=== PATIENT | female | born 1935 | race Caucasian/White ===

== ENCOUNTER 2017-02-22 11:18 | Emergency (ER) | payer OTHER ==
--- NOTE | 2017-02-22 11:49 | PDOC ---
History of Present Illness - General Chief Complaint: Injury Stated Complaint: FALL, Time Seen by Provider: 02/22/17 11:38 History Source: Patient, Old Records Exam Limitations: No Limitations - History of Present Illness Initial Comments: 02/22/17 11:59 81-year-old female with history of HTN, HLD, anemia, scleroderma and neuropathy presents to the emergency Department with complaints of right hip pain status post mechanical fall today. The patient states that she was walking with her walker and she lost her footing landing on her right buttock. There was no head trauma or loss of consciousness. The patient was able to get up immediately after the fall and ambulate/weight-bear. The patient denies any history of chest pain, shortness of breath, dizziness, palpitations prior to her fall. The patient has a h/o right hip fracture one year ago with placement of hardware. Past History - Past Medical History Allergies/Adverse Reactions: Allergies Allergy/AdvReac Type Severity Reaction Status Date / Time codeine [Codeine] Allergy Verified 09/02/12 16:47 ANESTESIA AdvReac Severe Uncoded 09/02/12 16:46 CODIENE AdvReac Intermediate Uncoded 09/02/12 16:46 Home Medications: Ambulatory Orders Metoprolol Succinate [Toprol XL -] 100 mg PO HS 09/02/12 Rosuvastatin Calcium [Crestor] 5 mg PO HS 09/02/12 Ca Cmb No.1/Vit D3/B-6/FA/B12 [Vitamin D3 1,000 Unit Tablet] 1 each PO DAILY tablet 09/06/13 Cholecalciferol (Vitamin D3) [Vitamin D3 -] 1,000 unit PO DAILY 08/16/14 Multivitamins [Multivit ([facility] Formulary)] 1 tab PO DAILY 08/16/14 HTN: Yes Hypercholesterolemia: Yes - Psycho/Social/Smoking Cessation Hx Anxiety: No Suicidal Ideation: No Smoking Status: No Smoking History: Never smoked Have you smoked in the past 12 months: No Number of Cigarettes Smoked Daily: 0 Hx Alcohol Use: No Drug/Substance Use Hx: No Substance Use Type: None Review of Systems - Review of Systems Able to Perform ROS?: Yes Is the patient limited Luxembourgish proficient: No Constitutional: No: Symptoms Reported HEENTM: No: Symptoms Reported Respiratory: No: Symptoms reported Cardiac (ROS): No: Symptoms Reported ABD/GI: No: Symptoms Reported : No: Symptoms Reported Musculoskeletal: Yes: See HPI Integumentary: No: Symptoms Reported Neurological: No: Symptoms reported *Physical Exam - Physical Exam Comments: 02/22/17 12:01 GENERAL: Well developed, well nourished. Awake and alert. No acute distress. HEENT: Normocephalic, atraumatic. PERRLA, EOMI. No conjunctival pallor. Sclera are non- icteric. Moist mucous membranes. Oropharynx is clear. NECK: Supple. Full ROM. No JVD. No lymphadenopathy. CARDIOVASCULAR: Regular rate and rhythm. No murmurs, rubs, or gallops. Distal pulses are 2+ and symmetric. PULMONARY: No evidence of respiratory distress. Lungs clear to auscultation bilaterally. No wheezing, rales or rhonchi. ABDOMINAL: Soft. Non-tender. Non-distended. No rebound or guarding. No organomegaly. Normoactive bowel sounds. MUSCULOSKELETAL Normal range of motion at all joints. No bony deformities or tenderness. No CVA tenderness. EXTREMITIES: There is mild tenderness to the right buttock where there is a healing chronic ulcer to the right hip. There is full ROM of the right hip and knee and there is no gross bony deformity noted. Distal pulses are intact and the motor exam is intact. SKIN: Warm and dry. Normal capillary refill. No rashes. No jaundice. NEUROLOGICAL: Alert, awake, appropriate. Cranial nerves 2-12 intact. Grossly non-focal exam. PSYCHIATRIC: Cooperative. Good eye contact. Appropriate mood and affect. Medical Decision Making - Medical Decision Making 02/22/17 12:02 81-year-old female with history of right hip fracture one year ago with hardware in place status post mechanical fall today with complaints of right hip pain but she is weightbearing on the extremity. Differential diagnosis includes but is not limited to: Hip fracture, pelvic fracture, displacement of hardware, contusion, sprain. Plan: 1. Plain films of the hip and pelvis 2. Pain managementpatient declines pain medication at this time 3. Observe and reevaluate 02/22/17 13:36 Addendum: Plain films are negative for acute injury. Will discharge home, follow-up with PCP, RTED if Sx persist, worsen or new Sx arise. *DC/Admit/Observation/Transfer Diagnosis at time of Disposition: Contusion of hip, right, Fall - Discharge Dispostion Disposition: HOME Condition at time of disposition: Stable Admit: No - Patient Instructions Additional Instructions: You may take tylenol for the pain. FOllow-up with your primary care physician and return to the ED if your symptoms persist, worsen or new symptoms arise.
[2017-02-22 11:51] VITALS: BP 186/81; PULSE 80; TEMP 98.5; BMI 26.2
== END 2017-02-22 13:43 | disposition home or self-care (01) ==
LOC: FER 11:18
DX: S70.01XA Contusion of right hip, initial encounter (principal); W18.30XA Fall on same level, unspecified, initial encounter; Y93.89 Activity, other specified; Y92.9 Unspecified place or not applicable; I10 Essential (primary) hypertension; E78.5 Hyperlipidemia, unspecified; M34.9 Systemic sclerosis, unspecified
CPT/HCPCS: 73523-TC; 99281-25

== ENCOUNTER 2018-05-23 16:20 | Inpatient (IN) | payer OTHER ==
--- NOTE | 2018-05-23 16:42 | PDOC ---
History of Present Illness - General Chief Complaint: Lethargy Stated Complaint: WEAKNESS Time Seen by Provider: 05/23/18 16:37 History Source: Patient Exam Limitations: No Limitations - History of Present Illness Initial Comments: 05/23/18 17:36 82y F pmhx htn, hl, scleraderma present with complaint of weakness when she was using the bathroom. She was walking to the couch after using the rest room and felt generally weak. This has happened before and she was dx with pna earlier in the year. pt notes she was feeling fine the past few days and this morning. denies any chestp apin, sob, fever/chills, n/v/d, headache, vision changes, neuro complaints, dizziness, dysuria, diarrhea. pt endorses a intermittent cough, intermittently productive of sputum her bp meds were recently changed, was originally given a 'water pill' and valsartan originally but now is just taking valsartan Past History - Past Medical History Allergies/Adverse Reactions: Allergies Allergy/AdvReac Type Severity Reaction Status Date / Time codeine [Codeine] Allergy Verified 09/02/12 16:47 ANESTESIA AdvReac Severe Uncoded 09/02/12 16:46 CODIENE AdvReac Intermediate Uncoded 09/02/12 16:46 Home Medications: Ambulatory Orders Metoprolol Succinate [Toprol XL -] 100 mg PO HS 09/02/12 Rosuvastatin Calcium [Crestor] 5 mg PO Q48H 09/02/12 Ca Cmb No.1/Vit D3/B-6/FA/B12 [Vitamin D3 1,000 Unit Tablet] 1 each PO DAILY tablet 09/06/13 Cholecalciferol (Vitamin D3) [Vitamin D3 -] 1,000 unit PO DAILY 08/16/14 Multivitamins [Multivit ([facility] Formulary)] 1 tab PO DAILY 08/16/14 Albuterol Sulfate Inhaler - [Ventolin Hfa Inhaler -] 1 puff IH QID PRN 05/23/18 Dextran/Hypromellose/Glycerin [Genteal Tears 0.1%-0.2%-0.3%] 1 drop OU BID 05/23 Gabapentin Enacarbil [Horizant] 300 mg PO DAILY 05/23/18 Valsartan [Diovan] 160 mg PO MOWEFRSA 05/23/18 Valsartan/Hydrochlorothiazide [Valsartan-Hctz 160-12.5 mg Tab] 1 each PO SUTUTH 05/23/18 Anemia: Yes COPD: No HTN: Yes Hypercholesterolemia: Yes Other medical history: SCLERODERMA, NEURALGIA, LEFT KNEE PAIN, SHINGLES - Suicide/Smoking/Psychosocial Hx Smoking Status: No Smoking History: Never smoked Have you smoked in the past 12 months: No Number of Cigarettes Smoked Daily: 0 Hx Alcohol Use: No Drug/Substance Use Hx: No Substance Use Type: None Review of Systems - Review of Systems Able to Perform ROS?: Yes Comments:: 05/23/18 18:55 Constitutional - +genrealized weakness no reported Fever, Chills, HEENT: no reported vision changes, sore throat Respiratory: no reported cough, sob, hemoptysis Cardiac: no reported chest pain, palpitations, light headedness, leg swelling Abd/GI: no reported abd pain, nausea, vomiting, blood per rectum, melena, diarrhea : no reported dysuria, frequency, discharge Musculskelatal - no reported back pain, joint swelling skin - no reported bruising, erythema, rash neurological: no reported headache, numbness, focal weakness, tingling, ataxia, hematologic: no reported easy bruising, easy bleeding *Physical Exam - Vital Signs Last Vital Signs Temp Pulse Resp BP Pulse Ox 97.8 F 108 H 20 180/100 97 05/23/18 16:21 05/23/18 16:21 05/23/18 16:21 05/23/18 16:21 05/23/18 16:21 - Physical Exam Comments: 05/23/18 18:56 GENERAL: The patient is awake, alert, and fully oriented, Nontoxic - in no acute distress. Generally weak appearing HEAD: Normocephalic, atraumatic. EYES: extraocular movements intact, sclera anicteric, conjunctiva clear. ENT: Normal voice, Moist mucous membranes. NECK: Normal range of motion, supple LUNGS: Breath sounds equal, clear to auscultation bilaterally. No wheezes, no rhonchi, no rales. HEART: Regular rate and rhythm, normal S1 and S2 without murmur, rub or gallop. ABDOMEN: Soft, nontender, normoactive bowel sounds. No guarding, no rebound. . No CVA tenderness EXTREMITIES: Normal range of motion, +2 pitting edema b/l, neg homans sign, NEUROLOGICAL: No facial assymetry, Normal speech, hip flexion 3/5 b/l PSYCH: Normal mood, normal affect. SKIN: Warm, Dry, normal turgor, Heart Score/ECG Review - ECG Impressions Comment:: 05/23/18 18:57 Twelve-lead EKG was performed and reviewed by me. There is normal sinus rhythm with a normal rate. Rate of 95 The axis is normal. The intervals are normal. There is normal R wave progression Abnormal R wave progression ED Treatment Course - LABORATORY CBC & Chemistry Diagram: 05/26/18 07:20 05/26/18 07:20 Medical Decision Making - Medical Decision Making 05/23/18 18:57 82-year-old presenting with generalized weakness, The patient's exam is nonfocal The patient's blood work noted for hyponatremia may be secondary to her bp meds will r/o infection w/ UA and cxr to r/o pna will admit the pt for further mangaement under the hospitalist service Case discussed in detail with admitting physician including history, physical exam and ancillary studies. Admitting physician has assumed care for the patient, will follow all pending diagnostics and will complete the evaluation and treatment. *DC/Admit/Observation/Transfer Diagnosis at time of Disposition: Hyponatremia - Discharge Dispostion Condition at time of disposition: Stable Decision to Admit order: Yes - Referrals - Patient Instructions - Post Discharge Activity
[2018-05-23 17:35] LABS: ALBUMIN 3.9 g/dl (3.5-5.0); ALK PHOS 58 U/L (32-92); ANION GAP 8 (8-16); BILIRUBIN,TOTAL 0.8 mg/dl (0.2-1.0); BLOOD UREA NITROGEN 16 mg/dl (7-18); CALCIUM 9.1 mg/dl (8.4-10.2); CHLORIDE 84 mmol/L (98-107); CO2 31 mmol/L (22-28); GLUCOSE,RANDOM 127 mg/dl (74-106); POTASSIUM 3.9 mmol/L (3.5-5.1); SGOT/AST 28 U/L (10-42); SGPT/ALT 17 U/L (10-40); TOT PROT 6.8 g/dl (6.4-8.3)
[2018-05-23 17:37] LABS: CREATININE < 0.6 mg/dl (0.6-1.3)
[2018-05-23 17:38] LABS: SODIUM 123 mmol/L (136-145)
[2018-05-23 17:54] LABS: HEMOGLOBIN 13.1 GM/dl (10.7-15.3); LYMPH % 12.1 % (8-40); MCH 31.4 pg (25.7-33.7); MCHC 35.4 g/dl (32.0-36.0); MEAN CELL VOLUME 88.7 fl (80-96); MEAN PLT VOLUME 8.2 fl (7.5-11.1); NEUT % 73.7 % (42.8-82.8); PLATELET COUNT 220 K/MM3 (134-434); RBC 4.17 M/mm3 (3.60-5.2); RDW 12.4 % (11.6-15.6)
[2018-05-23 17:55] LABS: BASO % 1.2 % (0-2.0); EOS % 1.6 % (0-4.5); MONO % 11.4 % (3.8-10.2)
[2018-05-23] MEDS ORDERED: SODIUM CHLORIDE 500 ML IV STA (18:55)
[2018-05-23 20:04] LABS: URINE APPEARANCE Clear; URINE BILIRUBIN Negative (NEGATIVE); URINE GLUCOSE (UA) Negative (NEGATIVE); URINE KETONE 1+ (NEGATIVE); URINE NITRITE Negative (NEGATIVE); URINE UROBILINOGEN 0.2 (0.2-1.0)
[2018-05-23 20:05] LABS: URINE PROTEIN 1+ (NEGATIVE)
[2018-05-23 20:06] LABS: URINE COLOR YELLOW; URINE LEUK ESTERASE 1+ (NEGATIVE)
[2018-05-23 20:15] LABS: URINE CREATININE 35.2 mg/dL (20-320)
[2018-05-23 20:16] LABS: URINE CHLORIDE 130 MEQ/L
[2018-05-23 22:22] LABS: EPI CELLS FEW /HPF; URINE BACTERIA FEW /hpf (NEGATIVE)
[2018-05-23] MEDS ORDERED: FUROSEMIDE 40 MG/4 ML INJECTABLE VIAL IVPUSH ONE (22:30)
--- NOTE | 2018-05-23 22:50 | HP ---
CHIEF COMPLAINT: weakness PCP: Ashley HISTORY OF PRESENT ILLNESS: This is an 82 year old female with a past medical history significant for scleroderma, pneumonia, HTN, HLD who presented to the ED with weakness today after going to the bathroom. Pt also reports chronic cough and orthopnea. Pt reports her valsartan HCTZ was changed to plain valsartan 4 weeks ago due to low BP but then her legs began to swell so her PCP restarted HCTZ 3 days per week 2 weeks ago. 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 Social History: Smoking: pt denies Alcohol: pt denies Drugs: pt denies Family History: mother age 94, DM, hip fx in her 80s father age 75, esophageal CA brother with DM sister age 80, dementia sister age 70, DM, hepatitis (transfusion induced) sister alive with DM and dementia Allergies codeine [Codeine] Allergy (Verified 09/02/12 16:47) ANESTESIA Adverse Reaction (Severe, Uncoded 09/02/12 16:46) SEVERE VOMITING FOR DAYS CODIENE Adverse Reaction (Intermediate, Uncoded 09/02/12 16:46) HOME MEDICATIONS: 3 Medication Instructions Recorded Metoprolol Succinate [Toprol XL -] 100 mg PO HS 09/02/12 Rosuvastatin Calcium [Crestor] 5 mg PO Q48H 09/02/12 Ca Cmb No.1/Vit D3/B-6/FA/B12 1 each PO DAILY tablet 09/06/13 [Vitamin D3 1,000 Unit Tablet] Cholecalciferol (Vitamin D3) 1,000 unit PO DAILY 08/16/14 [Vitamin D3 -] Multivitamins [Multivit ([facility] 1 tab PO DAILY 08/16/14 Formulary)] Albuterol Sulfate Inhaler - 1 puff IH QID PRN 05/23/18 [Ventolin Hfa Inhaler -] Valsartan [Diovan] 160 mg PO MOWEFRSA 05/23/18 Valsartan/Hydrochlorothiazide 1 each PO SUTUTH 05/23/18 [Valsartan-Hctz 160-12.5 mg Tab] REVIEW OF SYSTEMS CONSTITUTIONAL: Present: generalized weakness Absent: fever, chills, diaphoresis, malaise, loss of appetite, weight change HEENT: Absent: rhinorrhea, nasal congestion, throat pain, throat swelling, difficulty swallowing, mouth swelling, ear pain, eye pain, visual changes CARDIOVASCULAR: Absent: chest pain, syncope, palpitations, irregular heart rate, lightheadedness , peripheral edema RESPIRATORY: Present: cough, shortness of breath, dyspnea with exertion, orthopnea Absent: wheezing, stridor, hemoptysis GASTROINTESTINAL: Absent: abdominal pain, abdominal distension, nausea, vomiting, diarrhea, constipation, melena, hematochezia GENITOURINARY: Absent: dysuria, frequency, urgency, hesitancy, hematuria, flank pain, genital pain MUSCULOSKELETAL: Absent: myalgia, arthralgia, joint swelling, back pain, neck pain SKIN: Absent: rash, itching, pallor HEMATOLOGIC/IMMUNOLOGIC: Absent: easy bleeding, easy bruising, lymphadenopathy, frequent infections ENDOCRINE: Absent: unexplained weight gain, unexplained weight loss, heat intolerance, cold intolerance NEUROLOGIC: Absent: headache, focal weakness or paresthesias, dizziness, unsteady gait, seizure, mental status changes, bladder or bowel incontinence PSYCHIATRIC: Absent: anxiety, depression, suicidal or homicidal ideation, hallucinations. PHYSICAL EXAMINATION Vital Signs - 24 hr 3 05/23/18 05/23/18 16:21 20:13 Temperature 97.8 F 98.1 F Pulse Rate 108 H 89 Respiratory 20 20 Rate Blood Pressure 180/100 160/73 O2 Sat by Pulse 97 95 Oximetry (%) GENERAL: Awake, alert, and fully oriented, in no acute distress. HEAD: Normal with no signs of trauma. EYES: Pupils equal, round and reactive to light, extraocular movements intact, sclera anicteric, conjunctiva clear. No lid lag. EARS, NOSE, THROAT: Ears normal, nares patent, oropharynx clear without exudates. Moist mucous membranes. NECK: Normal range of motion, supple without lymphadenopathy, JVD, or masses. LUNGS: Crackles left base, otherwise CTA. No wheezes. No accessory muscle use. HEART: Regular rate and rhythm, normal S1 and S2 without rub or gallop. + murmur 5th ICS LSB ABDOMEN: Soft, nontender, not distended, normoactive bowel sounds, no guarding, no rebound, no masses. No hepatomegaly or splenomegaly. MUSCULOSKELETAL: Normal range of motion at all joints. No bony deformities or tenderness. No CVA tenderness. UPPER EXTREMITIES: 2+ pulses, warm, well-perfused. No cyanosis. No clubbing. No peripheral edema. LOWER EXTREMITIES: 2+ pulses, warm, well-perfused. No calf tenderness. 2+ peripheral edema B/L. NEUROLOGICAL: Cranial nerves II-XII intact. Normal speech. Normal gait. PSYCHIATRIC: Cooperative. Good eye contact. Appropriate mood and affect. SKIN: Warm, dry, normal turgor, no rashes or lesions noted, normal capillary refill. Laboratory Results - last 24 hr 3 05/23/18 05/23/18 05/23/18 16:40 16:40 16:40 WBC 6.0 RBC 4.17 Hgb 13.1 Hct 37.0 MCV 88.7 MCH 31.4 MCHC 35.4 RDW 12.4 Plt Count 220 MPV 8.2 Absolute Neuts (auto) 4.4 Neutrophils % 73.7 Lymphocytes % 12.1 Monocytes % 11.4 H Eosinophils % 1.6 Basophils % 1.2 Sodium 123 L* Potassium 3.9 Chloride 84 L Carbon Dioxide 31 H Anion Gap 8 BUN 16 Creatinine < 0.6 L Creat Clearance w eGFR > 60 Random Glucose 127 H D Serum Osmolality Calcium 9.1 Total Bilirubin 0.8 AST 28 D ALT 17 Alkaline Phosphatase 58 Creatine Kinase 70 Troponin I < 0.03 Total Protein 6.8 Albumin 3.9 Urine Color Urine Appearance Urine pH Ur Specific [place] Urine Protein Urine Glucose (UA) Urine Ketones Urine Blood Urine Nitrite Urine Bilirubin Urine Urobilinogen Ur Leukocyte Esterase Urine RBC Urine WBC Ur Epithelial Cells Urine Bacteria Urine Osmolality Ur Random Sodium Urine Creatinine 3 05/23/18 05/23/18 05/23/18 05/23/18 19:41 19:50 19:50 20:00 WBC RBC Hgb Hct MCV MCH MCHC RDW Plt Count MPV Absolute Neuts (auto) Neutrophils % Lymphocytes % Monocytes % Eosinophils % Basophils % Sodium Potassium Chloride Carbon Dioxide Anion Gap BUN Creatinine Creat Clearance w eGFR Random Glucose Serum Osmolality 264 L Calcium Total Bilirubin AST ALT Alkaline Phosphatase Creatine Kinase Troponin I Total Protein Albumin Urine Color Yellow Urine Appearance Clear Urine pH 7.0 Ur Specific [place] 1.020 Urine Protein 1+ H Urine Glucose (UA) Negative Urine Ketones 1+ H Urine Blood Trace-intact H Urine Nitrite Negative Urine Bilirubin Negative Urine Urobilinogen 0.2 Ur Leukocyte Esterase 1+ H Urine RBC 2-5 Urine WBC 10-20 Ur Epithelial Cells Few Urine Bacteria Few Urine Osmolality 491 Ur Random Sodium Cancelled 128 Urine Creatinine Cancelled 35.2 ECG Radiology Reports Chest xray portable Impression: Bilateral increased interstitial lung markings without gross evidence of focal airspace disease/ pneumonia. Reported By: Zabrina Rose MD 05/23/18 4512 ASSESSMENT/PLAN: 82yF with PMH HTN, HLD, scleroderma, anemia, osteoporosis s/p pelvis fracture and collarbone fracture presented to the ED with generalized weakness today. Also with chronic cough, orthopnea and VILLA. hyponatremia - repeat BMP now - ? thiazide diuretic induced. - renal consult - stop HCTZ orthopnea/SOB - ? due to ILD/scleroderma vs new onset CHF given crackles in lung and edema - trial furosemide 40mg x 1 - CT chest in AM - BNP ordered - pulmonary consult HTN/HLD - cont home crestor and hong, DC HCTZ DVT PPX - heparin 5000u TID FEN - hold IVF due to edema - BMP now and in am - regular diet as tolerated. Dispo: Pt currently requires further observation for management of her emergent symptoms Visit type - Emergency Visit Emergency Visit: Yes ED Registration Date: 05/23/18 Care time: The patient presented to the Emergency Department on the above date and was hospitalized for further evaluation of their emergent condition. - New Patient This patient is new to me today: Yes Date on this admission: 05/23/18 - Critical Care Critical Care patient: No Hospitalist Screening - Colonoscopy Questionnaire Colonoscopy Questionnaire: Colonoscopy Questionnaire - Patient: 50 - 75 years old and never had a screening colonoscopy: No History of colon or rectal polyps, or CA: No History of IBD, Crohn's disease or UC: No History of abdominal radiation therapy as a child: No - Relative: 1 with colon or rectal CA, or polyps at age 60 or younger: No Colon or rectal CA diagnosed at age 45 or younger: No Multiple relatives with colon or rectal CA: No - Outcome: Screening Result: Negative Screen
[2018-05-23] MEDS: ALBUTEROL SO4 2.5/IPRATROPIUM 0.5 INH SOL 3 ML VIAL.NEB. NEB SCH (22:55)
[2018-05-23 23:26] LABS: ANION GAP 11 (8-16); BLOOD UREA NITROGEN 12 mg/dl (7-18); CALCIUM 8.8 mg/dl (8.4-10.2); CHLORIDE 85 mmol/L (98-107); CO2 26 mmol/L (22-28); CREATININE 0.4 mg/dl (0.6-1.3); GLUCOSE,RANDOM 118 mg/dl (74-106); POTASSIUM 3.9 mmol/L (3.5-5.1)
[2018-05-23 23:28] LABS: SODIUM 122 mmol/L (136-145)
[2018-05-24 05:29] LABS: ANION GAP 11 (8-16); BLOOD UREA NITROGEN 13 mg/dL (7-18); CALCIUM 8.9 mg/dL (8.5-10.1); CHLORIDE 82 mmol/L (98-107); CO2 33 mmol/L (21-32); CREATININE 0.5 mg/dL (0.55-1.02); GLUCOSE,RANDOM 136 mg/dL (74-106); POTASSIUM 3.9 mmol/L (3.5-5.1); SODIUM 126 mmol/L (136-145)
[2018-05-24] MEDS: HEPARIN NA (PORCINE) 5,000 UNITS/ML 1ML VIAL SQ SCH ×3 (06:23→21:20)
--- NOTE | 2018-05-24 07:43 | PN ---
Progress Note (short form) - Note Progress Note: PULMONARY CONSULTATION DICTATED 05/24/18 IMP HYPONATREMIA ILD/SCLERODERMA DYSPNEA ? CHF ? PULMONARY HTN HTN HLD PLAN INHALED BRONCHODILATORS NASAL O2 ECHO URINE LYTES CHEST CT DR LEÓN Problem List - Problems (1) Hyponatremia Code(s): E87.1 - HYPO-OSMOLALITY AND HYPONATREMIA (2) Anemia Code(s): D64.9 - ANEMIA, UNSPECIFIED (3) HLD (hyperlipidemia) Code(s): E78.5 - HYPERLIPIDEMIA, UNSPECIFIED (4) HTN (hypertension) Code(s): I10 - ESSENTIAL (PRIMARY) HYPERTENSION Qualifiers: Hypertension type: essential hypertension Qualified Code(s): I10 - Essential (primary) hypertension (5) Scleroderma, circumscribed Code(s): L94.0 - LOCALIZED SCLERODERMA [MORPHEA] (6) Interstitial lung disease due to connective tissue disease Code(s): M35.8 - OTHER SPECIFIED SYSTEMIC INVOLVEMENT OF CONNECTIVE TISSUE; J84.89 - OTHER SPECIFIED INTERSTITIAL PULMONARY DISEASES (7) Interstitial lung disease due to connective tissue disease Code(s): M35.8 - OTHER SPECIFIED SYSTEMIC INVOLVEMENT OF CONNECTIVE TISSUE; J84.89 - OTHER SPECIFIED INTERSTITIAL PULMONARY DISEASES (8) Dyspnea Code(s): R06.00 - DYSPNEA, UNSPECIFIED
--- NOTE | 2018-05-24 08:14 | PN ---
Physical Exam: SUBJECTIVE: Patient seen and examined, reports ongoing cough and generalized weakness, denies any chest pain or shortness of breath. OBJECTIVE: Patient is a 82 year old female with a past medical history significant for scleroderma, HTN, and HLD. Patient was admitted from the emergency Vital Signs Period Temp Pulse Resp BP Sys/Frank Pulse Ox Last 24 Hr 97.8 F-98.4 F 74-108 20-22 140-180/62-100 94-97 GENERAL: The patient is awake, alert, and fully oriented, in no acute distress. HEAD: Normal with no signs of trauma. EYES: PERRL, extraocular movements intact, sclera anicteric, conjunctiva clear. No ptosis. ENT: Ears normal, nares patent, oropharynx clear without exudates, moist mucous membranes. NECK: Trachea midline, full range of motion, supple. LUNGS: Breath sounds equal, clear to auscultation bilaterally, crackles to bases , no wheezes, kles, no essory muscle use. HEART: Regular rate and rhythm, S1, S2, 3/6 systolic murmur, rub or gallop. ABDOMEN: Soft, nontender, nondistended, normoactive bowel sounds, no guarding, no rebound, no hepatosplenomegaly, no masses. EXTREMITIES: 2+ pulses, warm, well-perfused, +1 pitting edema bilateral lower extremities. NEUROLOGICAL: Cranial nerves II through XII grossly intact. Normal speech, gait not observed. PSYCH: Normal mood, normal affect. SKIN: Warm, dry, normal turgor, no rashes or lesions noted Laboratory Results - last 24 hr 05/23/18 05/23/18 05/23/18 16:40 16:40 16:40 WBC 6.0 RBC 4.17 Hgb 13.1 Hct 37.0 MCV 88.7 MCH 31.4 MCHC 35.4 RDW 12.4 Plt Count 220 MPV 8.2 Absolute Neuts (auto) 4.4 Neutrophils % 73.7 Lymphocytes % 12.1 Monocytes % 11.4 H Eosinophils % 1.6 Basophils % 1.2 Sodium 123 L* Potassium 3.9 Chloride 84 L Carbon Dioxide 31 H Anion Gap 8 BUN 16 Creatinine < 0.6 L Creat Clearance w eGFR > 60 Random Glucose 127 H D Serum Osmolality Calcium 9.1 Total Bilirubin 0.8 AST 28 D ALT 17 Alkaline Phosphatase 58 Creatine Kinase 70 Troponin I < 0.03 B-Natriuretic Peptide Total Protein 6.8 Albumin 3.9 Urine Color Urine Appearance Urine pH Ur Specific [place] Urine Protein Urine Glucose (UA) Urine Ketones Urine Blood Urine Nitrite Urine Bilirubin Urine Urobilinogen Ur Leukocyte Esterase Urine RBC Urine WBC Ur Epithelial Cells Urine Bacteria Urine Osmolality Ur Random Sodium Urine Creatinine 05/23/18 05/23/18 05/23/18 19:41 19:50 19:50 WBC RBC Hgb Hct MCV MCH MCHC RDW Plt Count MPV Absolute Neuts (auto) Neutrophils % Lymphocytes % Monocytes % Eosinophils % Basophils % Sodium Potassium Chloride Carbon Dioxide Anion Gap BUN Creatinine Creat Clearance w eGFR Random Glucose Serum Osmolality Calcium Total Bilirubin AST ALT Alkaline Phosphatase Creatine Kinase Troponin I B-Natriuretic Peptide Total Protein Albumin Urine Color Yellow Urine Appearance Clear Urine pH 7.0 Ur Specific [place] 1.020 Urine Protein 1+ H Urine Glucose (UA) Negative Urine Ketones 1+ H Urine Blood Trace-intact H Urine Nitrite Negative Urine Bilirubin Negative Urine Urobilinogen 0.2 Ur Leukocyte Esterase 1+ H Urine RBC 2-5 Urine WBC 10-20 Ur Epithelial Cells Few Urine Bacteria Few Urine Osmolality 491 Ur Random Sodium Cancelled Urine Creatinine Cancelled 05/23/18 05/23/18 05/23/18 19:50 20:00 23:00 WBC RBC Hgb Hct MCV MCH MCHC RDW Plt Count MPV Absolute Neuts (auto) Neutrophils % Lymphocytes % Monocytes % Eosinophils % Basophils % Sodium 122 L* Potassium 3.9 Chloride 85 L Carbon Dioxide 26 Anion Gap 11 BUN 12 Creatinine 0.4 L Creat Clearance w eGFR > 60 Random Glucose 118 H Serum Osmolality 264 L Calcium 8.8 Total Bilirubin AST ALT Alkaline Phosphatase Creatine Kinase Troponin I B-Natriuretic Peptide Total Protein Albumin Urine Color Urine Appearance Urine pH Ur Specific [place] Urine Protein Urine Glucose (UA) Urine Ketones Urine Blood Urine Nitrite Urine Bilirubin Urine Urobilinogen Ur Leukocyte Esterase Urine RBC Urine WBC Ur Epithelial Cells Urine Bacteria Urine Osmolality Ur Random Sodium 128 Urine Creatinine 35.2 05/23/18 05/24/18 23:00 04:20 WBC RBC Hgb Hct MCV MCH MCHC RDW Plt Count MPV Absolute Neuts (auto) Neutrophils % Lymphocytes % Monocytes % Eosinophils % Basophils % Sodium 126 L Potassium 3.9 Chloride 82 L Carbon Dioxide 33 H Anion Gap 11 BUN 13 Creatinine 0.5 L Creat Clearance w eGFR > 60 Random Glucose 136 H Serum Osmolality Calcium 8.9 Total Bilirubin AST ALT Alkaline Phosphatase Creatine Kinase Troponin I B-Natriuretic Peptide 1390.64 H Total Protein Albumin Urine Color Urine Appearance Urine pH Ur Specific [place] Urine Protein Urine Glucose (UA) Urine Ketones Urine Blood Urine Nitrite Urine Bilirubin Urine Urobilinogen Ur Leukocyte Esterase Urine RBC Urine WBC Ur Epithelial Cells Urine Bacteria Urine Osmolality Ur Random Sodium Urine Creatinine Active Medications Generic Name Dose Route Start Last Admin Trade Name Freq PRN Reason Stop Dose Admin Albuterol/Ipratropium 1 amp 05/23/18 22:45 05/23/18 22:55 Duoneb - NEB 1 amp RQID [facility]ILARIA Administration Artificial Tears 1 drop 05/24/18 10:00 Artificial Tears OU BID HILARIA Cholecalciferol 1,000 unit 05/24/18 10:00 Vitamin D3 - PO DAILY [facility] Heparin Sodium (Porcine) 5,000 unit 05/24/18 06:00 05/24/18 06:23 Heparin - SQ 5,000 unit TID HILARIA Administration Metoprolol Succinate 100 mg 05/24/18 22:00 Toprol Xl - PO HS [facility]IA Multivitamins/Minerals/Vitamin C 1 tab 05/24/18 10:00 Tab-A-Vit - PO DAILY [facility] Non-Formulary Medication 300 mg 05/24/18 10:00 Gabapentin Enacarbil [Horizant] PO DAILY [facility] Rosuvastatin Calcium 5 mg 05/25/18 22:00 Crestor - PO Q2D@2200 [facility] Valsartan 160 mg 05/24/18 10:00 Diovan - PO DAILY [facility] IMAGING chest xray (05/23/18): bilateral increased interstial lung marking, no evidence of pna chest xray (05/24/18): no acute pathology no change since 05/23/18 ekg nsr nonspecific t wave abnormality ASSESSMENT/PLAN: 1) f/e/n hyponatremia - repeat corrected serum sodium 121, after iv lasix, maybe secondary to thiazide , continue to hold diuretic - fluid restriction - repeat bmp at 1800 - appreciate nephrology input 2) pulm scleroderma - pending ct of chest, repeat cxr today no acute infilirate or effusion noted - continue combivent q6h start symbicort - keep spo2 above 92% with supplemental o2 - pulmonary consulted and followed 3) cardiovascular hypertension - continue diovan, b/p at goal - bnp elevated, pt appears euvolmic on exam strict monitoring hyperlipidemia - continue crestor DVT PPX - heparin 5000u TID Dispo: Pt currently requires further observation for management of her emergent symptoms Visit type - Emergency Visit Emergency Visit: Yes ED Registration Date: 05/23/18 Care time: The patient presented to the Emergency Department on the above date and was hospitalized for further evaluation of their emergent condition. - New Patient This patient is new to me today: No - Critical Care Critical Care patient: No - Discharge Referral Referred to [facility] No
--- NOTE | 2018-05-24 08:27 | EKG ---
Test Reason : Blood Pressure : / mmHG Vent. Rate : 095 BPM Atrial Rate : 095 BPM P-R Int : 204 ms QRS Dur : 080 ms QT Int : 346 ms P-R-T Axes : 054 015 010 degrees QTc Int : 434 ms NORMAL SINUS RHYTHM CANNOT RULE OUT ANTERIOR INFARCT , AGE UNDETERMINED ABNORMAL ECG NO PREVIOUS ECGS AVAILABLE Confirmed by SAY BLANCO MD ([id number]) on 05/24/2018 8:27:08 AM Referred By: DR WEBER Confirmed By:SAY BLANCO MD
[2018-05-24] MEDS ORDERED: PT OWN MED DRAWER 7, Y5N ONE (09:31)
[2018-05-24] MEDS: ARTIFICIAL TEARS (POLYVINYL ALCOHOL 1.4%) OPTH DROPS OU SCH ×2 (09:32→21:21)
[2018-05-24] MEDS: VALSARTAN 160 MG TABLET (UD) PO SCH (09:32)
[2018-05-24] MEDS: CHOLECALCIFEROL (VITAMIN D3) 1,000 UNIT TABLET (FP) PO SCH (09:33)
[2018-05-24] MEDS: MULTIVITAMINS (DAILY MVI) TABLET (FP) PO SCH (09:33)
[2018-05-24] MEDS: ALBUTEROL SO4 2.5/IPRATROPIUM 0.5 INH SOL 3 ML VIAL.NEB. NEB SCH ×4 (09:34→20:42)
[2018-05-24 10:00] LABS: BASO % 3.5 % (0-2.0); EOS % 0.2 % (0-4.5); HEMATOCRIT 41.3 % (32.4-45.2); HEMOGLOBIN 13.9 GM/dl (10.7-15.3); LYMPH % 8.4 % (8-40); MCH 29.3 pg (25.7-33.7); MCHC 33.6 g/dl (32.0-36.0); MEAN CELL VOLUME 87.2 fl (80-96); MEAN PLT VOLUME 7.8 fl (7.5-11.1); MONO % 6.2 % (3.8-10.2); NEUT % 81.7 % (42.8-82.8); PLATELET COUNT 230 K/MM3 (134-434); RBC 4.74 M/mm3 (3.60-5.2); RDW 12.3 % (11.6-15.6); WHITE BLOOD COUNT 8.5 K/mm3 (4.0-10.8)
[2018-05-24] MEDS ORDERED: GABAPENTIN ENACARBIL 300 MG PO SCH (10:00)
[2018-05-24 11:47] LABS: ANION GAP 9 (8-16); BLOOD UREA NITROGEN 14 mg/dl (7-18); CHLORIDE 79 mmol/L (98-107); CO2 32 mmol/L (22-28); CREATININE 0.6 mg/dl (0.6-1.3); GLUCOSE,RANDOM 125 mg/dl (74-106); MAGNESIUM 1.6 mg/dL (1.8-2.4); PHOSPHOROUS 4.2 mg/dl (2.5-4.6); POTASSIUM 3.6 mmol/L (3.5-5.1)
[2018-05-24 11:49] LABS: SODIUM 120 mmol/L (136-145)
[2018-05-24] MEDS ORDERED: MAGNESIUM SULFATE IN WATER 2 GM/50 ML IVPB IVPB ONE (12:10)
[2018-05-24] MEDS ORDERED: POTASSIUM CHLORIDE ORAL LIQUID 20 MEQ/15 ML PO ONE (12:11)
[2018-05-24] MEDS: CEFTRIAXONE 1 G/50 ML PREMIX 50 ML IVPB SCH (12:54)
[2018-05-24] MEDS ORDERED: ACETAMINOPHEN 325 MG TABLET (FP) PO PRN (13:39)
--- NOTE | 2018-05-24 14:13 | CON.NEP ---
Consult Consult Specialty:: nephrology Reason for Consultation:: hyponatremia - History of Present Illness Chief Complaint: leg swelling, dyspnea History of Present Illness: This is an 82 year old female with a past medical history significant for scleroderma, pneumonia, HTN, HLD who presented to the ED with weakness today after going to the bathroom. Pt also reports chronic cough and orthopnea. Pt reports her valsartan HCTZ was changed to plain valsartan 4 weeks ago due to low BP but then her legs began to swell so her PCP restarted HCTZ 3 days per week 2 weeks ago. She does not eat much due to some degree of dysphagia which she thinlks is due to shingles and scleroderma. Her family has been pushing fluids. Note the recent heat wave which has resulted in complaints from her and may have contributed to increased fluid intake. - History Source History Provided By: Patient, Family Member, Medical Record Limitations to Obtaining History: No Limitations - Past Medical History Cardio/Vascular: Yes: HTN, Hyperlipdemia Musculoskeletal: Yes: Osteoarthritis Rheumatology: Yes: Other (scleroderma) Dermatology: Yes: Other (Scleroderma) - Past Surgical History Past Surgical History: Yes: Hysterectomy - Alcohol/Substance Use Hx Alcohol Use: No History of Substance Use: reports: None - Smoking History Smoking history: Never smoked Have you smoked in the past 12 months: No Aproximately how many cigarettes per day: 0 - Social History ADL: Family Assistance Occupation: Retired History of Recent Travel: No Home Medications - Allergies Allergies/Adverse Reactions: Allergies Allergy/AdvReac Type Severity Reaction Status Date / Time codeine [Codeine] Allergy Verified 09/02/12 16:47 ANESTESIA AdvReac Severe Uncoded 09/02/12 16:46 CODIENE AdvReac Intermediate Uncoded 09/02/12 16:46 - Home Medications Home Medications: Ambulatory Orders Metoprolol Succinate [Toprol XL -] 100 mg PO HS 09/02/12 Rosuvastatin Calcium [Crestor] 5 mg PO Q48H 09/02/12 Ca Cmb No.1/Vit D3/B-6/FA/B12 [Vitamin D3 1,000 Unit Tablet] 1 each PO DAILY tablet 09/06/13 Cholecalciferol (Vitamin D3) [Vitamin D3 -] 1,000 unit PO DAILY 08/16/14 Multivitamins [Multivit ([facility] Formulary)] 1 tab PO DAILY 08/16/14 Albuterol Sulfate Inhaler - [Ventolin Hfa Inhaler -] 1 puff IH QID PRN 05/23/18 Dextran/Hypromellose/Glycerin [Genteal Tears 0.1%-0.2%-0.3%] 1 drop OU BID 05/23 Gabapentin Enacarbil [Horizant] 300 mg PO DAILY 05/23/18 Valsartan [Diovan] 160 mg PO MOWEFRSA 05/23/18 Valsartan/Hydrochlorothiazide [Valsartan-Hctz 160-12.5 mg Tab] 1 each PO SUTUTH 05/23/18 Review of Systems - Review of Systems Constitutional: reports: Weakness Eyes: reports: No Symptoms HENT: reports: Difficult Swallowing Neck: reports: Pain on Movement Cardiovascular: reports: Edema Respiratory: reports: Orthopnea, SOB Gastrointestinal: reports: No Symptoms Genitourinary: reports: No Symptoms Breasts: reports: No Symptoms Reported Musculoskeletal: reports: No Symptoms Integumentary: reports: No Symptoms Neurological: reports: Weakness Endocrine: reports: No Symptoms Hematology/Lymphatic: reports: No Symptoms Psychiatric: reports: No Symptoms Nephrology Consult - Height Height: 5 ft 5 in - Weight Weight: 142 lb - BMI Body Mass Index (BMI): 23.6 - Lab Results CBC,BMP: CBC, BMP 05/24/18 09:56 05/24/18 11:34 Anion Gap: Anion Gap Anion Gap 9 (8-16) 05/24/18 11:34 - Imaging Chest X-ray: Report Reviewed (bilat increased marking) - Physical Examination Vital Signs: Vital Signs Temperature 98.4 F 05/24/18 06:22 Pulse Rate 96 H 05/24/18 06:22 Respiratory Rate 20 05/24/18 06:22 Blood Pressure 149/70 05/24/18 06:22 O2 Sat by Pulse Oximetry (%) 94 L 05/24/18 02:58 Constitutional: Yes: Well Nourished, No Distress, Anxious Eyes: Yes: Conjunctiva Clear HENT: Yes: Atraumatic, Normocephalic Neck: Yes: Supple, Trachea Midline Cardiovascular: Yes: Regular Rate and Rhythm, Murmur Respiratory: Yes: Rales Gastrointestinal: Yes: Normal Bowel Sounds Musculoskeletal: Yes: WNL Extremities: Yes: WNL Edema: Yes Edema: LLE: 2+, RLE: 2+ Integumentary: Yes: WNL Neurological: Yes: Alert, Oriented Psychiatric: Yes: Alert, Oriented Assessment/Plan IMPRESSION Hyponatremia- probably due to fluid intake that is not associated with food intake. Note family has been pushing fluids and its been hot. She has edema and crackles which can be from fluid overload which can be playing a role in her hyponatremia. Her urine sodium was high but she has been taking hctz. It seems like she has been hyponatremic in past edema- possibly from pulmonary hypertension but also increasewd fluid intake scleroderma PLAN fluid restriction for now is the way to go If sodium continues to drop then will need hypertonic repeat sodium 4 hours after ther previous sample was drawn obtain tsh, cortisol and serum osm no diuretics for now MV
[2018-05-24 19:12] LABS: ANION GAP 6 (8-16); BLOOD UREA NITROGEN 18 mg/dl (7-18); CALCIUM 8.8 mg/dl (8.4-10.2); CHLORIDE 84 mmol/L (98-107); CO2 32 mmol/L (22-28); CREATININE 0.8 mg/dl (0.6-1.3); GLUCOSE,RANDOM 116 mg/dl (74-106); MAGNESIUM 2.6 mg/dL (1.8-2.4); PHOSPHOROUS 3.9 mg/dl (2.5-4.6); POTASSIUM 4.6 mmol/L (3.5-5.1)
[2018-05-24 19:25] LABS: SODIUM 122 mmol/L (136-145)
[2018-05-24] MEDS: BUDESONIDE/FORMETEROL FUMARATE 80/4.5 mcg INHALER IH SCH (21:20)
[2018-05-25] MEDS: HEPARIN NA (PORCINE) 5,000 UNITS/ML 1ML VIAL SQ SCH ×3 (06:44→21:09)
[2018-05-25] MEDS: ALBUTEROL SO4 2.5/IPRATROPIUM 0.5 INH SOL 3 ML VIAL.NEB. NEB SCH ×4 (08:10→19:27)
[2018-05-25 08:13] LABS: BASO % 0.3 % (0-2.0); EOS % 2.2 % (0-4.5); HEMATOCRIT 36.1 % (32.4-45.2); HEMOGLOBIN 12.2 GM/dl (10.7-15.3); LYMPH % 14.4 % (8-40); MCH 29.9 pg (25.7-33.7); MCHC 33.8 g/dl (32.0-36.0); MEAN CELL VOLUME 88.6 fl (80-96); MONO % 11.6 % (3.8-10.2); NEUT % 71.5 % (42.8-82.8); PLATELET COUNT 211 K/MM3 (134-434); RBC 4.07 M/mm3 (3.60-5.2); RDW 12.4 % (11.6-15.6); WHITE BLOOD COUNT 5.8 K/mm3 (4.0-10.8)
--- NOTE | 2018-05-25 08:53 | PN ---
Physical Exam: SUBJECTIVE: Patient seen and examined, sitting in bedside chair, reports feeling less dyspneic. OBJECTIVE: Patient is a 82 year old female with a past medical history significant for scleroderma, HTN, and HLD. Patient was admitted from the emergency department for hyponatremia and respiratory distress. Vital Signs Period Temp Pulse Resp BP Sys/Frank Pulse Ox Last 24 Hr 97.7 F-98.1 F 86-103 16-19 94-105/44-48 95-100 GENERAL: The patient is awake, alert, and fully oriented, in no acute distress. HEAD: Normal with no signs of trauma. EYES: PERRL, extraocular movements intact, sclera anicteric, conjunctiva clear. No ptosis. ENT: Ears normal, nares patent, oropharynx clear without exudates, moist mucous membranes. NECK: Trachea midline, full range of motion, supple. LUNGS: Breath sounds equal, clear to auscultation bilaterally to apexes, crackles to right base, no accessory muscle use. HEART: Regular rate and rhythm, S1, S2, 3/6 systolic murmur, no rub or gallop ABDOMEN: Soft, nontender, nondistended, normoactive bowel sounds, no guarding, no rebound, no hepatosplenomegaly, no masses. EXTREMITIES: 2+ pulses, warm, well-perfused, no edema. NEUROLOGICAL: Cranial nerves II through XII grossly intact. Normal speech, gait not observed. PSYCH: Normal mood, normal affect. SKIN: Warm, dry, normal turgor, no rashes or lesions noted Laboratory Results - last 24 hr CBC WBC 5.8 K/mm3 (4.0-10.8) 05/25/18 07:25 RBC 4.07 M/mm3 (3.60-5.2) 05/25/18 07:25 Hgb 12.2 GM/dl (10.7-15.3) 05/25/18 07:25 Hct 36.1 % (32.4-45.2) 05/25/18 07:25 MCV 88.6 fl (80-96) 05/25/18 07:25 MCH 29.9 pg (25.7-33.7) 05/25/18 07:25 MCHC 33.8 g/dl (32.0-36.0) 05/25/18 07:25 RDW 12.4 % (11.6-15.6) 05/25/18 07:25 Plt Count 211 K/MM3 (134-434) 05/25/18 07:25 MPV 8.0 fl (7.5-11.1) 05/25/18 07:25 Absolute Neuts (auto) 4.2 # 05/25/18 07:25 Neutrophils % 71.5 % (42.8-82.8) 05/25/18 07:25 Lymphocytes % 14.4 % (8-40) 05/25/18 07:25 Monocytes % 11.6 % (3.8-10.2) H 05/25/18 07:25 Eosinophils % 2.2 % (0-4.5) 05/25/18 07:25 Basophils % 0.3 % (0-2.0) 05/25/18 07:25 CMP Sodium 124 mmol/L (136-145) L* 05/25/18 07:25 Potassium 4.5 mmol/L (3.5-5.1) 05/25/18 07:25 Chloride 85 mmol/L (98-107) L 05/25/18 07:25 Carbon Dioxide 31 mmol/L (22-28) H 05/25/18 07:25 Anion Gap 8 (8-16) 05/25/18 07:25 BUN 18 mg/dl (7-18) 05/25/18 07:25 Creatinine 0.7 mg/dl (0.6-1.3) 05/25/18 07:25 Creat Clearance w eGFR > 60 (>60) 05/25/18 07:25 Random Glucose 91 mg/dl (74-106) D 05/25/18 07:25 Serum Osmolality 265 mosm/kg (278-305) L 05/25/18 07:25 Calcium 9.1 mg/dl (8.4-10.2) 05/25/18 07:25 Phosphorus 3.8 mg/dl (2.5-4.6) 05/25/18 07:25 Magnesium 2.2 mg/dL (1.8-2.4) 05/25/18 07:25 Total Bilirubin 0.8 mg/dl (0.2-1.0) 05/23/18 16:40 AST 28 U/L (10-42) D 05/23/18 16:40 ALT 17 U/L (10-40) 05/23/18 16:40 Alkaline Phosphatase 58 U/L (32-92) 05/23/18 16:40 Creatine Kinase 70 IU/L (26-192) 05/23/18 16:40 Troponin I < 0.03 ng/ml (0.00-0.06) 05/23/18 16:40 B-Natriuretic Peptide 1390.64 pg/ml (5-450) H 05/23/18 23:00 Total Protein 6.8 g/dl (6.4-8.3) 05/23/18 16:40 Albumin 3.9 g/dl (3.5-5.0) 05/23/18 16:40 TSH 2.80 uIU/ml (0.358-3.74) 05/24/18 11:00 Free T4 1.78 ng/dl (0.76-1.46) H 05/24/18 11:00 Active Medications Generic Name Dose Route Start Last Admin Trade Name Freq PRN Reason Stop Dose Admin Acetaminophen 650 mg 05/24/18 13:39 Tylenol - PO Q4H PRN PAIN OR FEVER Albuterol/Ipratropium 1 amp 05/23/18 22:45 05/24/18 20:42 Duoneb - NEB 1 amp RQID HILARIA Administration Artificial Tears 1 drop 05/24/18 10:00 05/24/18 21:21 Artificial Tears OU 1 drop BID HILARIA Administration Budesonide/Formoterol Fumarate 2 puff 05/24/18 22:00 05/24/18 21:20 Symbicort 80/4.5mcg - IH 2 puff BID HILARIA Administration Cholecalciferol 1,000 unit 05/24/18 10:00 05/24/18 09:33 Vitamin D3 - PO 1,000 unit DAILY HILARIA Administration Heparin Sodium (Porcine) 5,000 unit 05/24/18 06:00 05/25/18 06:44 Heparin - SQ 5,000 unit TID HILARIA Administration Ceftriaxone Sodium 50 mls @ 200 mls/hr 05/24/18 12:30 05/24/18 12:54 Ceftriaxone 1 Gm-D5w Bag IVPB 200 mls/hr DAILY HILARIA Administration Protocol Metoprolol Succinate 100 mg 05/24/18 22:00 05/24/18 21:44 Toprol Xl - PO Not Given HS [facility] Multivitamins/Minerals/Vitamin C 1 tab 05/24/18 10:00 05/24/18 09:33 Tab-A-Vit - PO 1 tab DAILY HILARIA Administration Non-Formulary Medication 300 mg 05/24/18 10:00 Gabapentin Enacarbil [Horizant] PO DAILY [facility] Rosuvastatin Calcium 5 mg 05/25/18 22:00 Crestor - PO Q2D@2200 [facility] Valsartan 160 mg 05/24/18 10:00 05/24/18 09:32 Diovan - PO 160 mg DAILY HILARIA Administration Microbiology 05/23/18 19:50 Urine - Urine Clean Catch Urine Culture - Final IMAGING ct of chest: bibasilar athelactic changes and probable infilitrates, ,no pleural effusion noted chest xray (05/23/18): bilateral increased interstial lung marking, no evidence of pna chest xray (05/24/18): no acute pathology no change since 05/23/18 ekg nsr nonspecific t wave abnormality ASSESSMENT/PLAN: 1) f/e/n hyponatremia - serum sodium 124, slowly improving, continue to hold diuretic - fluid restriction - repeat bmp at 1200 - nephrology consulted and followed 2) pulm scleroderma - continue symbicort and combivent nebulizers prn - keep spo2 above 92% with supplemental o2 - pulmonary consulted and followed 3) cardiovascular hypertension - continue diovan with parameters - murmur noted on exam, patient denies any prior history, does reports episode of dyspnea upon exertion, pending echo today ? tachycardia - likely secondary to combivent nebulizers, will change to prn - change toprol to 50mg bid with parameters - bnp elevated, pt appears euvolmic on exam strict monitoring hyperlipidemia - continue crestor DVT PPX - heparin 5000u TID Dispo: Pt currently requires further observation for management of her emergent symptoms Visit type - Emergency Visit Emergency Visit: Yes ED Registration Date: 05/25/18 Care time: The patient presented to the Emergency Department on the above date and was hospitalized for further evaluation of their emergent condition. - New Patient This patient is new to me today: No - Critical Care Critical Care patient: No - Discharge Referral Referred to [facility] No
[2018-05-25] MEDS ORDERED: PT OWN MED DRAWER 7, Y5N ONE ×2 (09:15→22:05)
[2018-05-25] MEDS: CHOLECALCIFEROL (VITAMIN D3) 1,000 UNIT TABLET (FP) PO SCH (09:46)
[2018-05-25] MEDS: MULTIVITAMINS (DAILY MVI) TABLET (FP) PO SCH (09:46)
[2018-05-25] MEDS: CEFTRIAXONE 1 G/50 ML PREMIX 50 ML IVPB SCH (09:46)
[2018-05-25] MEDS: BUDESONIDE/FORMETEROL FUMARATE 80/4.5 mcg INHALER IH SCH ×2 (09:46→22:16)
[2018-05-25] MEDS: ARTIFICIAL TEARS (POLYVINYL ALCOHOL 1.4%) OPTH DROPS OU SCH ×2 (09:47→21:09)
[2018-05-25] MEDS: VALSARTAN 160 MG TABLET (UD) PO SCH (09:48)
[2018-05-25 09:49] LABS: ANION GAP 8 (8-16); BLOOD UREA NITROGEN 18 mg/dl (7-18); CALCIUM 9.1 mg/dl (8.4-10.2); CHLORIDE 85 mmol/L (98-107); CO2 31 mmol/L (22-28); CREATININE 0.7 mg/dl (0.6-1.3); GLUCOSE,RANDOM 91 mg/dl (74-106); MAGNESIUM 2.2 mg/dL (1.8-2.4); PHOSPHOROUS 3.8 mg/dl (2.5-4.6); POTASSIUM 4.5 mmol/L (3.5-5.1)
[2018-05-25 09:53] LABS: SODIUM 124 mmol/L (136-145)
--- NOTE | 2018-05-25 10:38 | PN ---
Progress Note, Physician History of Present Illness: PULMONARY ALERT,FEELING BETTER,LESS DYSPNEIC. - Current Medication List Current Medications: Active Medications Acetaminophen (Tylenol -) 650 mg PO Q4H PRN PRN Reason: PAIN OR FEVER Albuterol/Ipratropium (Duoneb -) 1 amp NEB RQID [facility] Last Admin: 05/25/18 08:10 Dose: 1 amp Artificial Tears (Artificial Tears) 1 drop OU BID [facility] Last Admin: 05/25/18 09:47 Dose: 1 drop Budesonide/Formoterol Fumarate (Symbicort 80/4.5mcg -) 2 puff IH BID [facility] Last Admin: 05/25/18 09:46 Dose: 2 puff Cholecalciferol (Vitamin D3 -) 1,000 unit PO DAILY [facility] Last Admin: 05/25/18 09:46 Dose: 1,000 unit Heparin Sodium (Porcine) (Heparin -) 5,000 unit SQ TID [facility] Last Admin: 05/25/18 06:44 Dose: 5,000 unit Ceftriaxone Sodium (Ceftriaxone 1 Gm-D5w Bag) 50 mls @ 200 mls/hr IVPB DAILY [facility]; Protocol Last Admin: 05/25/18 09:46 Dose: 200 mls/hr Metoprolol Succinate (Toprol Xl -) 100 mg PO HS [facility] Last Admin: 05/24/18 21:44 Dose: Not Given Multivitamins/Minerals/Vitamin C (Tab-A-Vit -) 1 tab PO DAILY [facility] Last Admin: 05/25/18 09:46 Dose: 1 tab Non-Formulary Medication (Gabapentin Enacarbil [Horizant]) 300 mg PO DAILY [facility] Rosuvastatin Calcium (Crestor -) 5 mg PO Q2D@2200 [facility] Valsartan (Diovan -) 160 mg PO DAILY [facility] Last Admin: 05/25/18 09:48 Dose: Not Given - Objective Vital Signs: Vital Signs Temperature 97.7 F 05/25/18 09:00 Pulse Rate 112 H 05/25/18 09:00 Respiratory Rate 18 05/25/18 09:00 Blood Pressure 111/64 05/25/18 09:00 O2 Sat by Pulse Oximetry (%) 95 05/25/18 09:00 Constitutional: Yes: Calm, Thin Eyes: Yes: WNL HENT: Yes: WNL Neck: Yes: WNL Cardiovascular: Yes: Regular Rate and Rhythm, S1, S2 Respiratory: Yes: Rales (BIBASILAR CRACKLES) Gastrointestinal: Yes: Normal Bowel Sounds, Soft Extremities: Yes: WNL Edema: Yes Labs: CBC, BMP 05/25/18 07:25 05/25/18 07:25 - ....Imaging Cat Scan: Report Reviewed, Image Reviewed (CHRONIC INTERSTITIAL CHANGES,NO ACUTE INFILTRATE) Problem List - Problems (1) Hyponatremia Code(s): E87.1 - HYPO-OSMOLALITY AND HYPONATREMIA (2) Anemia Code(s): D64.9 - ANEMIA, UNSPECIFIED (3) HLD (hyperlipidemia) Code(s): E78.5 - HYPERLIPIDEMIA, UNSPECIFIED (4) HTN (hypertension) Code(s): I10 - ESSENTIAL (PRIMARY) HYPERTENSION Qualifiers: Hypertension type: essential hypertension Qualified Code(s): I10 - Essential (primary) hypertension (5) Scleroderma, circumscribed Code(s): L94.0 - LOCALIZED SCLERODERMA [MORPHEA] (6) Interstitial lung disease due to connective tissue disease Code(s): M35.8 - OTHER SPECIFIED SYSTEMIC INVOLVEMENT OF CONNECTIVE TISSUE; J84.89 - OTHER SPECIFIED INTERSTITIAL PULMONARY DISEASES (7) Interstitial lung disease due to connective tissue disease Code(s): M35.8 - OTHER SPECIFIED SYSTEMIC INVOLVEMENT OF CONNECTIVE TISSUE; J84.89 - OTHER SPECIFIED INTERSTITIAL PULMONARY DISEASES (8) Dyspnea Code(s): R06.00 - DYSPNEA, UNSPECIFIED Assessment/Plan IMP HYPONATREMIA ILD/SCLERODERMA DYSPNEA IMPROVING ? CHF ? 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
[2018-05-25] MEDS: ASPIRIN 81 MG CHEWABLE TABLETS PO SCH (12:48)
[2018-05-25 13:03] LABS: ANION GAP 10 (8-16); BLOOD UREA NITROGEN 18 mg/dl (7-18); CALCIUM 9.1 mg/dl (8.4-10.2); CHLORIDE 84 mmol/L (98-107); CO2 31 mmol/L (22-28); CREATININE 0.6 mg/dl (0.6-1.3); GLUCOSE,RANDOM 122 mg/dl (74-106); POTASSIUM 4.4 mmol/L (3.5-5.1); SODIUM 125 mmol/L (136-145)
[2018-05-25] MEDS ORDERED: SODIUM CHLORIDE 1 GM TABLET PO ONE (14:12)
--- NOTE | 2018-05-25 14:12 | PN ---
Progress Note, Physician History of Present Illness: Pt seen and examined at bedside. She is awake and alert. She says that she feels better than yesterday. She says that her legs are not swollen. - Current Medication List Current Medications: Active Medications Acetaminophen (Tylenol -) 650 mg PO Q4H PRN PRN Reason: PAIN OR FEVER Albuterol/Ipratropium (Duoneb -) 1 amp NEB RQID [facility] Last Admin: 05/25/18 12:48 Dose: 1 amp Artificial Tears (Artificial Tears) 1 drop OU BID [facility] Last Admin: 05/25/18 09:47 Dose: 1 drop Aspirin (Asa -) 81 mg PO DAILY [facility] Last Admin: 05/25/18 12:48 Dose: 81 mg Budesonide/Formoterol Fumarate (Symbicort 80/4.5mcg -) 2 puff IH BID [facility] Last Admin: 05/25/18 09:46 Dose: 2 puff Cholecalciferol (Vitamin D3 -) 1,000 unit PO DAILY [facility] Last Admin: 05/25/18 09:46 Dose: 1,000 unit Famotidine (Pepcid -) 20 mg PO BID [facility] Heparin Sodium (Porcine) (Heparin -) 5,000 unit SQ TID [facility] Last Admin: 05/25/18 06:44 Dose: 5,000 unit Metoprolol Succinate (Toprol Xl -) 50 mg PO BID [facility] Last Admin: 05/25/18 12:48 Dose: 50 mg Multivitamins/Minerals/Vitamin C (Tab-A-Vit -) 1 tab PO DAILY [facility] Last Admin: 05/25/18 09:46 Dose: 1 tab Non-Formulary Medication (Gabapentin Enacarbil [Horizant]) 300 mg PO DAILY [facility] Rosuvastatin Calcium (Crestor -) 5 mg PO Q2D@2200 [facility] Valsartan (Diovan -) 160 mg PO DAILY [facility] Last Admin: 05/25/18 09:48 Dose: Not Given - Objective Vital Signs: Vital Signs Temperature 97.7 F 05/25/18 09:00 Pulse Rate 112 H 05/25/18 09:00 Respiratory Rate 18 05/25/18 09:00 Blood Pressure 111/64 05/25/18 09:00 O2 Sat by Pulse Oximetry (%) 95 05/25/18 09:00 Constitutional: Yes: Calm Eyes: Yes: Conjunctiva Clear HENT: Yes: Atraumatic Cardiovascular: Yes: S1, S2 Respiratory: Yes: CTA Bilaterally Gastrointestinal: Yes: Soft Genitourinary: Yes: WNL Musculoskeletal: Yes: Muscle Weakness Edema: Yes Edema: LLE: Trace, RLE: Trace Integumentary: Yes: Venous Stasis Changes Neurological: Yes: Oriented Psychiatric: Yes: Oriented Labs: CBC, BMP 05/25/18 07:25 05/25/18 12:35 Problem List - Problems (1) Hyponatremia Code(s): E87.1 - HYPO-OSMOLALITY AND HYPONATREMIA Assessment/Plan Current Medications Generic Name Dose Route Start Last Admin Trade Name Freq PRN Reason Stop Dose Admin Acetaminophen 650 mg 05/24/18 13:39 Tylenol - PO Q4H PRN PAIN OR FEVER Albuterol/Ipratropium 1 amp 05/23/18 22:45 05/25/18 12:48 Duoneb - NEB 1 amp RQID [facility] Administration Artificial Tears 1 drop 05/24/18 10:00 05/25/18 09:47 Artificial Tears OU 1 drop BID [facility] Administration Aspirin 81 mg 05/25/18 12:00 05/25/18 12:48 Asa - PO 81 mg DAILY [facility] Administration Budesonide/Formoterol Fumarate 2 puff 05/24/18 22:00 05/25/18 09:46 Symbicort 80/4.5mcg - IH 2 puff BID [facility] Administration Cholecalciferol 1,000 unit 05/24/18 10:00 05/25/18 09:46 Vitamin D3 - PO 1,000 unit DAILY [facility] Administration Famotidine 20 mg 05/25/18 22:00 Pepcid - PO BID [facility] Heparin Sodium (Porcine) 5,000 unit 05/24/18 06:00 05/25/18 06:44 Heparin - SQ 5,000 unit TID [facility] Administration Metoprolol Succinate 50 mg 05/25/18 12:30 05/25/18 12:48 Toprol Xl - PO 50 mg BID [facility] Administration Multivitamins/Minerals/Vitamin C 1 tab 05/24/18 10:00 05/25/18 09:46 Tab-A-Vit - PO 1 tab DAILY [facility] Administration Non-Formulary Medication 300 mg 05/24/18 10:00 Gabapentin Enacarbil [Horizant] PO DAILY [facility] Rosuvastatin Calcium 5 mg 05/25/18 22:00 Crestor - PO Q2D@2200 [facility] Valsartan 160 mg 05/24/18 10:00 05/25/18 09:48 Diovan - PO Not Given DAILY [facility] Laboratory Tests 05/23/18 05/23/18 05/25/18 19:50 20:00 07:25 Serum Osmolality 265 L Urine Osmolality 491 Ur Random Sodium 128 Impression 1. hyponatremia in the setting of a thiazide 2. scleroderma 3. HTN 4. HLD Plan - sodium is improving - will give a salt tab - restrict free water - do not restart thiazide - encourage PO intake Dr Titus
[2018-05-25] MEDS ORDERED: SODIUM CHLORIDE 250 ML IV STA (14:17)
--- NOTE | 2018-05-25 14:44 | EKG ---
Test Reason : Blood Pressure : / mmHG Vent. Rate : 112 BPM Atrial Rate : 112 BPM P-R Int : 178 ms QRS Dur : 084 ms QT Int : 320 ms P-R-T Axes : 056 030 016 degrees QTc Int : 436 ms SINUS TACHYCARDIA OTHERWISE NORMAL ECG WHEN COMPARED WITH ECG OF 23-MAY-2018 16:46, NO SIGNIFICANT CHANGE WAS FOUND Confirmed by LON CARTY MD ([id number]) on 05/25/2018 2:44:37 PM Referred By: SERGIO Confirmed By:LON CARTY MD
--- NOTE | 2018-05-25 18:22 | CONSULT ---
Admitting History and Physical - Past Medical History Cardiovascular: Yes: HTN, Hyperlipdemia Musculoskeletal: Yes: Osteoarthritis Rheumatology: Yes: Other (scleroderma) Dermatology: Yes: Other (Scleroderma) - Past Surgical History Past Surgical History: Yes: Hysterectomy - Advance Directives Advance Directives: Yes: DNR - Smoking History Smoking history: Never smoked Have you smoked in the past 12 months: No Aproximately how many cigarettes per day: 0 - Alcohol/Substance Use Hx Alcohol Use: No History of Substance Use: reports: None - Social History ADL: Family Assistance Occupation: Retired History of Recent Travel: No History - Admission Reason For Visit: HYPONATREMIA,WEAKNESS - Hearing Hearing: Impaired, Both Hearing Aide: No Speech Evaluation - Communication Primary Language: [place] Communication: Yes: Within Normal Limits, Simple Responses Oral Expression Ability: Yes: No Impairment - Speech Production Apraxia: No Able to Make Needs Known: Yes: WNL Intelligibility: Yes: WNL - Speech Characteristics Voice Loudness: Normal Voice Pitch: Yes: Normal Voice Phonatory-based Quality: Yes: Normal Speech Pattern: Normal Nasal Resonance: Normal Articulation: Yes: Precise Rate of Speech: Intact - Language/Auditory Comprehension Follows: Yes: 1 Stage Simple Commands (WFL), 2 Stage Simple Commands (WFL) Observation: Able to respond to yes/no queries: Yes, Yes/No Confusion: No, Comprehends Conversational Speech: Yes, Benefits from Slow Speech: No, Benefits from Repetiton: No, Benefits from Increased Volume of Speech: Yes - Language/Verbal Expression Able to Respond to Simple Queries: Yes: WNL Able to Communicate Wants and Needs: Yes: WNL Functional Communication Status: Yes: WNL Aware of Errors: Yes Attempts to Correct Errors: Yes Use of Gestures: No Written Expression: not examined Oral Expression: WFL Reading Comprehension: not examined Calculations: not examined Attention: Yes: Intact - Memory/Perception termite control technician Memory: Yes: WNL Short Term Memory: Yes: WNL - Swallow Evaluation/Bedside Assessment Current Nutritional Intake: Thin Liquids, Other (Dysphagia ground) Oral Secretions: Yes: WFL Tracheostomy Present: No Patient on Ventilator: No Dentition: Yes: Adequate (condition fair) Facial Symmetry at Rest: Symmetrical Facial Symmetry on Retraction: Symmetrical Facial Movement: Controlled Sensation: Normal Jaw Position: Closed at Rest Against Resistance Opening: Normal Against Resistance Closing: Normal Pucker Lips: Normal Smile: Normal Lips, Comment: WF for speech and swallowing purposes Lingual Movement: Normal Lingual Speed of Movement: Normal Lingual Movement Strgth Against Opposition: Normal Lingual Movement Characteristics: Normal Lingual Comment: WFL for speech and swallowing purposes Soft Palate Description: Normal Color Hard Palate Description: Normal Color Gag Reflex: Strong Bite Reflex: Present Velopharyngeal Movement: Normal Laryngeal Elevation: Impaired Laryngeal Movement: Able to Palpate, Labored,delay initiation Needs Assistance: Yes Rate of Intake: Slow/Holding Bolus Size: Small Labial Seal: WFL Chewing: WFL Oral Prep Time: WFL A-P Transit: WFL Pocketing: None Timing of Swallow: Delayed Odynophagia: Oral, Pharyngeal Coughing/Throat Clear: Yes (on-going secondary to scleroderma Dx) Change in Voice: No Other Findings/Remarks: 82 yo female seen at bedside during dinner for swallow eval to rule out dysphagia. Family members present during this session. Pt is verbal, somewhat cooperative, A&Ox3. PHX includes scleroderma, PNA, HTN and HLD. Admitted to [facility] for weakness. Pt states that she has 'difficulty swallowing' with food feeling like it gets stuck on the right side of the throat. Pt also reported coughing while consuming meals has been on-going for a few years now. Current diet is ground moisten solids with thin liquids. Family reports pt presents with decreased nutritional intake. Pt given po trials of pureed and soft ground solids with assistance revealed reduced acceptance, increased mastication, bolus formation and A-P transport. Pharyngeal swallows are mildly delayed (2-3 seconds) with occasional coughing observed. Pt given po trials of thin liquids with minimal assistance revealed small bolus sizes (sips) adequate labial containment and A-P transport Pharyngeal swallows are mildly delayed (2-3 seconds) with occasional coughing observed. Pt reported that 'food gets stuck on the right side of my throat' when swallowing. HYDROMETER TESTER suggested turning her head to the good side (left side) when swallowing but pt was not interested in the technique. Recommendations - Speech Evaluation, Impression/Plan Impression: Pt presents with mild to moderate signs of dysphagia and occassional s/s of aspiration that may be related to scleroderma. Fpc Goals: tolerate the least restrictive diet without s/s of aspiration Short Term Goals: tolerate moisten ground solids and thin liquids without s/s aspiration. - Dysphagia Impressions/Plan Dysphagia Treatment Plan: Small Bites, Safe Rate, 1/2 tsp. at a time, Elevate HOB during feed, Other (encourage thorough chewing, monitor nutritional intake and pulmonary status.) Dysphagia Evaluation Summary: Pt presents with mild to moderate oral and pharyngeal phase dysphagia for solids and liquids. Ideally pureed would be easier to consume but pt does want all foods in this form. Pt is able to tolerate purees and moisten ground solids with thin liquids. Pt does demonstrate some signs of aspiration (coughing during meals). Crush meds in applesauce for ease of swallowing. Encourage small sips of liquids as tolerated. Consider nutritional supplements. Results given to tree trimming line technician and to pcp via chart. Recommendations: Other (consider nutritional supplements) - Recommendations Diet Consistency: Other (Dysphagia ground (moisten as appropriate).) Medication Administration: Crushed with applesauce Liquids: Thin Liquids Supplement: Magic Cup (consider)
[2018-05-25 20:03] LABS: ANION GAP 8 (8-16); BLOOD UREA NITROGEN 18 mg/dl (7-18); CHLORIDE 87 mmol/L (98-107); CO2 30 mmol/L (22-28); CREATININE 0.6 mg/dl (0.6-1.3); GLUCOSE,RANDOM 117 mg/dl (74-106); POTASSIUM 4.7 mmol/L (3.5-5.1); SODIUM 125 mmol/L (136-145)
[2018-05-25] MEDS: FAMOTIDINE 20 MG TABLET PO SCH (21:08)
[2018-05-25] MEDS: ROSUVASTATIN CA 5 MG TABLET (FP) PO SCH (21:08)
[2018-05-25] MEDS ORDERED: ALBUTEROL SO4 2.5/IPRATROPIUM 0.5 INH SOL 3 ML VIAL.NEB. NEB PRN (21:27)
[2018-05-26] MEDS: HEPARIN NA (PORCINE) 5,000 UNITS/ML 1ML VIAL SQ SCH ×3 (05:56→21:30)
[2018-05-26] MEDS ORDERED: ONDANSETRON 4 MG/2 ML VIAL IVPUSH PRN (06:35)
[2018-05-26 08:12] LABS: BASO % 0.7 % (0-2.0); HEMATOCRIT 38.2 % (32.4-45.2); HEMOGLOBIN 13.2 GM/dl (10.7-15.3); LYMPH % 6.5 % (8-40); MCH 30.5 pg (25.7-33.7); MCHC 34.4 g/dl (32.0-36.0); MEAN CELL VOLUME 88.5 fl (80-96); MEAN PLT VOLUME 8.7 fl (7.5-11.1); MONO % 7.2 % (3.8-10.2); NEUT % 84.6 % (42.8-82.8); PLATELET COUNT 232 K/MM3 (134-434); RBC 4.32 M/mm3 (3.60-5.2); RDW 12.4 % (11.6-15.6); WHITE BLOOD COUNT 6.9 K/mm3 (4.0-10.8)
--- NOTE | 2018-05-26 08:14 | PN ---
Progress Note, Physician History of Present Illness: pulmonary alert,c/o nausea,-cp. had sob last night currently improved - Current Medication List Current Medications: Active Medications Acetaminophen (Tylenol -) 650 mg PO Q4H PRN PRN Reason: PAIN OR FEVER Albuterol/Ipratropium (Duoneb -) 1 amp NEB Q6H PRN PRN Reason: SHORT OF BREATH/WHEEZING Artificial Tears (Artificial Tears) 1 drop OU BID [facility] Last Admin: 05/25/18 21:09 Dose: 1 drop Aspirin (Asa -) 81 mg PO DAILY [facility] Last Admin: 05/25/18 12:48 Dose: 81 mg Budesonide/Formoterol Fumarate (Symbicort 80/4.5mcg -) 2 puff IH BID [facility] Last Admin: 05/25/18 22:16 Dose: 2 puff Cholecalciferol (Vitamin D3 -) 1,000 unit PO DAILY [facility] Last Admin: 05/25/18 09:46 Dose: 1,000 unit Famotidine (Pepcid -) 20 mg PO BID [facility] Last Admin: 05/25/18 21:08 Dose: 20 mg Heparin Sodium (Porcine) (Heparin -) 5,000 unit SQ TID [facility] Last Admin: 05/26/18 05:56 Dose: 5,000 unit Metoprolol Succinate (Toprol Xl -) 50 mg PO BID [facility] Last Admin: 05/25/18 21:08 Dose: 50 mg Multivitamins/Minerals/Vitamin C (Tab-A-Vit -) 1 tab PO DAILY [facility] Last Admin: 05/25/18 09:46 Dose: 1 tab Non-Formulary Medication (Gabapentin Enacarbil [Horizant]) 300 mg PO DAILY [facility] Ondansetron HCl (Zofran Injection) 4 mg IVPUSH Q6H PRN PRN Reason: NAUSEA AND/OR VOMITING Last Admin: 05/26/18 07:00 Dose: 4 mg Rosuvastatin Calcium (Crestor -) 5 mg PO Q2D@2200 [facility] Last Admin: 05/25/18 21:08 Dose: 5 mg Valsartan (Diovan -) 160 mg PO DAILY [facility] Last Admin: 05/25/18 09:48 Dose: Not Given - Objective Vital Signs: Vital Signs Temperature 98.0 F 05/26/18 06:11 Pulse Rate 115 H 05/26/18 06:11 Respiratory Rate 20 05/26/18 06:11 Blood Pressure 171/84 05/26/18 06:11 O2 Sat by Pulse Oximetry (%) 95 05/26/18 06:11 Constitutional: Yes: Calm, Thin Eyes: Yes: WNL HENT: Yes: WNL Neck: Yes: WNL Cardiovascular: Yes: Regular Rate and Rhythm, S1, S2 Respiratory: Yes: Rales (bibasialr crackles) Gastrointestinal: Yes: Normal Bowel Sounds, Soft Extremities: Yes: WNL Edema: No Problem List - Problems (1) Hyponatremia Code(s): E87.1 - HYPO-OSMOLALITY AND HYPONATREMIA (2) Anemia Code(s): D64.9 - ANEMIA, UNSPECIFIED (3) HLD (hyperlipidemia) Code(s): E78.5 - HYPERLIPIDEMIA, UNSPECIFIED (4) HTN (hypertension) Code(s): I10 - ESSENTIAL (PRIMARY) HYPERTENSION Qualifiers: Hypertension type: essential hypertension Qualified Code(s): I10 - Essential (primary) hypertension (5) Scleroderma, circumscribed Code(s): L94.0 - LOCALIZED SCLERODERMA [MORPHEA] (6) Interstitial lung disease due to connective tissue disease Code(s): M35.8 - OTHER SPECIFIED SYSTEMIC INVOLVEMENT OF CONNECTIVE TISSUE; J84.89 - OTHER SPECIFIED INTERSTITIAL PULMONARY DISEASES (7) Interstitial lung disease due to connective tissue disease Code(s): M35.8 - OTHER SPECIFIED SYSTEMIC INVOLVEMENT OF CONNECTIVE TISSUE; J84.89 - OTHER SPECIFIED INTERSTITIAL PULMONARY DISEASES (8) Dyspnea Code(s): R06.00 - DYSPNEA, UNSPECIFIED Assessment/Plan IMP HYPONATREMIA ILD/SCLERODERMA DYSPNEA ? CHF HTN HLD MILD TO MODERATE PLAN INHALED BRONCHODILATORS NASAL O2 MONITOR JULIA MCCALL DR Problem List - Problems (1) Hyponatremia Code(s): E87.1 - HYPO-OSMOLALITY AND HYPONATREMIA (2) Anemia Code(s): D64.9 - ANEMIA, UNSPECIFIED (3) HLD (hyperlipidemia) Code(s): E78.5 - HYPERLIPIDEMIA, UNSPECIFIED (4) HTN (hypertension) Code(s): I10 - ESSENTIAL (PRIMARY) HYPERTENSION Qualifiers: Hypertension type: essential hypertension Qualified Code(s): I10 - Essential (primary) hypertension (5) Scleroderma, circumscribed Code(s): L94.0 - LOCALIZED SCLERODERMA [MORPHEA] (6) Interstitial lung disease due to connective tissue disease Code(s): M35.8 - OTHER SPECIFIED SYSTEMIC INVOLVEMENT OF CONNECTIVE TISSUE; J84.89 - OTHER SPECIFIED INTERSTITIAL PULMONARY DISEASES (7) Interstitial lung disease due to connective tissue disease Code(s): M35.8 - OTHER SPECIFIED SYSTEMIC INVOLVEMENT OF CONNECTIVE TISSUE; J84.89 - OTHER SPECIFIED INTERSTITIAL PULMONARY DISEASES (8) Dyspnea Code(s): R06.00 - DYSPNEA, UNSPECIFIED
[2018-05-26 08:33] LABS: ANION GAP 8 (8-16); BLOOD UREA NITROGEN 15 mg/dl (7-18); CALCIUM 8.8 mg/dl (8.4-10.2); CHLORIDE 87 mmol/L (98-107); CO2 29 mmol/L (22-28); CREATININE 0.5 mg/dl (0.6-1.3); GLUCOSE,RANDOM 122 mg/dl (74-106); MAGNESIUM 1.9 mg/dL (1.8-2.4); POTASSIUM 4.4 mmol/L (3.5-5.1)
[2018-05-26 08:35] LABS: SODIUM 124 mmol/L (136-145)
--- NOTE | 2018-05-26 08:45 | PN ---
Physical Exam: SUBJECTIVE: Patient seen and examined, reports feeling tired, denies any pain, wants to be left alone, refusing meals OBJECTIVE:Patient is a 82 year old female with a past medical history significant for scleroderma, HTN, and HLD. Patient was admitted from the emergency department for hyponatremia and respiratory distress. Vital Signs Period Temp Pulse Resp BP Sys/Frank Pulse Ox Last 24 Hr 97.7 F-98.3 F 101-115 18-20 104-171/51-85 95-97 GENERAL: The patient is awake, alert, and fully oriented, in no acute distress. HEAD: Normal with no signs of trauma. EYES: PERRL, extraocular movements intact, sclera anicteric, conjunctiva clear. No ptosis. ENT: Ears normal, nares patent, oropharynx clear without exudates, dry mucous membranes. NECK: Trachea midline, full range of motion, supple. LUNGS: Breath sounds equal, clear to auscultation bilaterally, no wheezes, no crackles, no accessory muscle use. HEART: Regular rate and rhythm, S1, S2 without murmur, rub or gallop. ABDOMEN: Soft, nontender, nondistended, normoactive bowel sounds, no guarding, no rebound, no hepatosplenomegaly, no masses. EXTREMITIES: 2+ pulses, warm, well-perfused, no edema. NEUROLOGICAL: Cranial nerves II through XII grossly intact. Normal speech, gait not observed. PSYCH: Normal mood, normal affect. SKIN: Warm, dry, normal turgor, no rashes or lesions noted Laboratory Results - last 24 hr 05/24/18 05/24/18 05/25/18 11:00 11:00 07:25 WBC RBC Hgb Hct MCV MCH MCHC RDW Plt Count MPV Absolute Neuts (auto) Neutrophils % Lymphocytes % Monocytes % Eosinophils % Basophils % Sodium 124 L* Potassium 4.5 Chloride 85 L Carbon Dioxide 31 H Anion Gap 8 BUN 18 Creatinine 0.7 Creat Clearance w eGFR > 60 Random Glucose 91 D Serum Osmolality Calcium 9.1 Phosphorus 3.8 Magnesium 2.2 TSH Cancelled 2.80 Free T4 1.78 H Cortisol AM Sample 05/25/18 05/25/18 05/25/18 07:25 07:25 12:35 WBC RBC Hgb Hct MCV MCH MCHC RDW Plt Count MPV Absolute Neuts (auto) Neutrophils % Lymphocytes % Monocytes % Eosinophils % Basophils % Sodium 125 L Potassium 4.4 Chloride 84 L Carbon Dioxide 31 H Anion Gap 10 BUN 18 Creatinine 0.6 Creat Clearance w eGFR > 60 Random Glucose 122 H D Serum Osmolality 265 L Calcium 9.1 Phosphorus Magnesium TSH Free T4 Cortisol AM Sample 14.6 05/25/18 05/26/18 05/26/18 19:45 07:20 07:20 WBC 6.9 RBC 4.32 Hgb 13.2 Hct 38.2 MCV 88.5 MCH 30.5 MCHC 34.4 RDW 12.4 Plt Count 232 MPV 8.7 Absolute Neuts (auto) 5.8 Neutrophils % 84.6 H Lymphocytes % 6.5 L Monocytes % 7.2 Eosinophils % 1.0 Basophils % 0.7 Sodium 125 L 124 L* Potassium 4.7 4.4 Chloride 87 L 87 L Carbon Dioxide 30 H 29 H Anion Gap 8 8 BUN 18 15 Creatinine 0.6 0.5 L Creat Clearance w eGFR > 60 > 60 Random Glucose 117 H 122 H Serum Osmolality Calcium 9.0 8.8 Phosphorus 3.0 D Magnesium 1.9 TSH Free T4 Cortisol AM Sample Active Medications Generic Name Dose Route Start Last Admin Trade Name Freq PRN Reason Stop Dose Admin Acetaminophen 650 mg 05/24/18 13:39 Tylenol - PO Q4H PRN PAIN OR FEVER Albuterol/Ipratropium 1 amp 05/25/18 21:27 Duoneb - NEB Q6H PRN SHORT OF BREATH/WHEEZING Artificial Tears 1 drop 05/24/18 10:00 05/25/18 21:09 Artificial Tears OU 1 drop BID [facility] Administration Aspirin 81 mg 05/25/18 12:00 05/25/18 12:48 Asa - PO 81 mg DAILY [facility] Administration Budesonide/Formoterol Fumarate 2 puff 05/24/18 22:00 05/25/18 22:16 Symbicort 80/4.5mcg - IH 2 puff BID [facility] Administration Cholecalciferol 1,000 unit 05/24/18 10:00 05/25/18 09:46 Vitamin D3 - PO 1,000 unit DAILY [facility] Administration Famotidine 20 mg 05/25/18 22:00 05/25/18 21:08 Pepcid - PO 20 mg BID [facility] Administration Heparin Sodium (Porcine) 5,000 unit 05/24/18 06:00 05/26/18 05:56 Heparin - SQ 5,000 unit TID [facility] Administration Metoprolol Succinate 50 mg 05/25/18 12:30 05/25/18 21:08 Toprol Xl - PO 50 mg BID [facility] Administration Multivitamins/Minerals/Vitamin C 1 tab 05/24/18 10:00 05/25/18 09:46 Tab-A-Vit - PO 1 tab DAILY [facility] Administration Non-Formulary Medication 300 mg 05/24/18 10:00 Gabapentin Enacarbil [Horizant] PO DAILY [facility] Ondansetron HCl 4 mg 05/26/18 06:35 05/26/18 07:00 Zofran Injection IVPUSH 4 mg Q6H PRN Administration NAUSEA AND/OR VOMITING Rosuvastatin Calcium 5 mg 05/25/18 22:00 05/25/18 21:08 Crestor - PO 5 mg Q2D@2200 [facility] Administration Valsartan 160 mg 05/24/18 10:00 05/25/18 09:48 Diovan - PO Not Given DAILY [facility] Microbiology 05/23/18 19:50 Urine - Urine Clean Catch Urine Culture - Final IMAGING ct of chest: bibasilar athelactic changes and probable infilitrates, ,no pleural effusion noted chest xray (05/23/18): bilateral increased interstial lung marking, no evidence of pna chest xray (05/24/18): no acute pathology no change since 05/23/18 ekg nsr nonspecific t wave abnormality ASSESSMENT/PLAN: 1) f/e/n hyponatremia - serum sodium 125, patient appear hypovolemic on exam, start IV fluids, recheck at 1800 - patient declines salt tablets - nephrology consulted and followed 2) pulm scleroderma - continue symbicort and combivent nebulizers prn - keep spo2 above 92% with supplemental o2 - pulmonary consulted and followed 3) cardiovascular hypertension - continue diovan with parameters Aortic stenosis - echo lv wnl, mild to moderate tachycardia - resolving, continue toprol 50mg bid with parameters hyperlipidemia - continue crestor lengthy discussion with son and daughter, patient is a dnr/dni, document from home was brought in and copy is in paper chart, palliative care was discussed with son/daughter and both are in agreement, social security specialist consulted, requesting at home hospice with marija DVT PPX - heparin 5000u TID Dispo: Pt currently requires further observation for management of her emergent symptoms Visit type - Emergency Visit Emergency Visit: Yes ED Registration Date: 05/25/18 Care time: The patient presented to the Emergency Department on the above date and was hospitalized for further evaluation of their emergent condition. - New Patient This patient is new to me today: No - Critical Care Critical Care patient: No - Discharge Referral Referred to [facility] Med P.C.: No
--- NOTE | 2018-05-26 09:03 | CONS ---
CONSULTATION DATE OF CONSULTATION: 05/24/2018 REFERRING PHYSICIAN: HISTORY OF PRESENT ILLNESS: The patient is an 82-year-old white female with a past medical history of scleroderma diagnosed approximately 40 years ago, history of interstitial lung disease, hypertension, hyperlipidemia, nonsmoker, also a history of pneumonia, admitted to [facility] with a complaint of generalized weakness. The patient states that she was going to the bathroom earlier today and has had profound weakness. She denied any chest pain, nausea, vomiting or diaphoresis. She does complain of some shortness of breath. She presented to the emergency room with the above. In the ER, she was noted to have a serum sodium of 123. Of note is she was previously on valsartan and hydrochlorothiazide and was changed to plain valsartan 4 weeks prior to this admission secondary to hypotension. She was noted to have hypotension, but since that time she has developed lower extremity edema; at which time, she was restarted on hydrochlorothiazide 3 days per week 2 weeks prior to this admission. The patient does complain of shortness of breath with exertion. She said it has been getting worse over the past 6 months. She states she normally ambulates moderate to short distances with a walker and develops the shortness of breath. She is not currently on home oxygen therapy, but uses an inhaled bronchodilator at home. She denies any history of COPD or asthma. There is no history of occupational exposure to chemical or fumes. There is no history of recent travel. She denies any history of DVT or PE in the past. 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 SOCIAL HISTORY: Again, nonsmoker, no occupational exposures. CURRENT MEDICATIONS: Include heparin subcutaneous t.i.d., Diovan, DuoNeb, Toprol XL, artificial tears, Crestor, , and vitamin D. REVIEW OF SYSTEMS: No orthopnea. Positive dyspnea. No chest pain. No palpitations. Positive mild cough, nonproductive. Positive weakness. No nausea. No vomiting. No abdominal pain. Positive lower extremity edema. PHYSICAL EXAMINATION: General: The patient is an elderly white female, chronically ill appearing, well developed, awake, alert, in no acute respiratory distress. Vital Signs: She is afebrile. Her blood pressure is 149/70, respiratory rate is 20, O2 saturation is 94% on room air. HEENT: Exam is normocephalic, atraumatic. Neck: Supple. Heart: Regular S1 and S2. Chest: Bilateral crackles. Abdomen: Soft. Bowel sounds are positive. Extremities: No cyanosis . LABORATORIES: WBC is 6.0, hemoglobin 13.1, hematocrit 37, platelet count is 220,000. Serum sodium on admission was 123, subsequent 122, and most recent 126. BNP is 1390. Urine electrolytes are pending. Urine sodium is 128. Chest x-ray: Chronic interstitial changes bilaterally, but no acute infiltrates and/or effusions. IMPRESSION: 1. Weakness. Likely secondary to severe hyponatremia likely due to diuretic use. 2. 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 3. History of hypertension. 4. Questionable congestive heart failure, as noted by elevated brain natriuretic peptide. PLAN: Continue cautious use of IV fluids. Monitor serum sodium. Inhaled bronchodilators. CT scan of the chest. Obtain echocardiogram. Monitor electrolytes. Thank you. Will follow closely with you. IVET LEÓN M.D. CECILY/[id number]
[2018-05-26] MEDS: MULTIVITAMINS (DAILY MVI) TABLET (FP) PO SCH (09:27)
[2018-05-26] MEDS: ASPIRIN 81 MG CHEWABLE TABLETS PO SCH (09:27)
[2018-05-26] MEDS: VALSARTAN 160 MG TABLET (UD) PO SCH (09:27)
[2018-05-26] MEDS: ARTIFICIAL TEARS (POLYVINYL ALCOHOL 1.4%) OPTH DROPS OU SCH ×2 (09:27→21:30)
[2018-05-26] MEDS: FAMOTIDINE 20 MG TABLET PO SCH ×2 (09:27→21:30)
[2018-05-26] MEDS: CHOLECALCIFEROL (VITAMIN D3) 1,000 UNIT TABLET (FP) PO SCH (09:27)
[2018-05-26] MEDS: BUDESONIDE/FORMETEROL FUMARATE 80/4.5 mcg INHALER IH SCH ×2 (09:27→21:30)
[2018-05-26] MEDS ORDERED: PT OWN MED DRAWER 7, Y5N ONE ×3 (09:46→21:27)
--- NOTE | 2018-05-26 10:43 | PN ---
Physical Exam: SUBJECTIVE: Patient seen and examined OBJECTIVE: Vital Signs Period Temp Pulse Resp BP Sys/Frank Pulse Ox Last 24 Hr 97.7 F-98.3 F 101-115 18-20 104-171/51-85 95-97 GENERAL: The patient is awake, alert, and fully oriented, in no acute distress. HEAD: Normal with no signs of trauma. EYES: PERRL, extraocular movements intact, sclera anicteric, conjunctiva clear. No ptosis. ENT: Ears normal, nares patent, oropharynx clear without exudates, moist mucous membranes. NECK: Trachea midline, full range of motion, supple. LUNGS: Breath sounds equal, clear to auscultation bilaterally, no wheezes, no crackles, no accessory muscle use. HEART: Regular rate and rhythm, S1, S2 without murmur, rub or gallop. ABDOMEN: Soft, nontender, nondistended, normoactive bowel sounds, no guarding, no rebound, no hepatosplenomegaly, no masses. EXTREMITIES: 2+ pulses, warm, well-perfused, no edema. NEUROLOGICAL: Cranial nerves II through XII grossly intact. Normal speech, gait not observed. PSYCH: Normal mood, normal affect. SKIN: Warm, dry, normal turgor, no rashes or lesions noted Laboratory Results - last 24 hr 05/24/18 05/25/18 05/25/18 11:00 07:25 07:25 WBC RBC Hgb Hct MCV MCH MCHC RDW Plt Count MPV Absolute Neuts (auto) Neutrophils % Lymphocytes % Monocytes % Eosinophils % Basophils % Sodium Potassium Chloride Carbon Dioxide Anion Gap BUN Creatinine Creat Clearance w eGFR Random Glucose Serum Osmolality 265 L Calcium Phosphorus Magnesium TSH 2.80 Cortisol AM Sample 14.6 05/25/18 05/25/18 05/26/18 12:35 19:45 07:20 WBC 6.9 RBC 4.32 Hgb 13.2 Hct 38.2 MCV 88.5 MCH 30.5 MCHC 34.4 RDW 12.4 Plt Count 232 MPV 8.7 Absolute Neuts (auto) 5.8 Neutrophils % 84.6 H Lymphocytes % 6.5 L Monocytes % 7.2 Eosinophils % 1.0 Basophils % 0.7 Sodium 125 L 125 L Potassium 4.4 4.7 Chloride 84 L 87 L Carbon Dioxide 31 H 30 H Anion Gap 10 8 BUN 18 18 Creatinine 0.6 0.6 Creat Clearance w eGFR > 60 > 60 Random Glucose 122 H D 117 H Serum Osmolality Calcium 9.1 9.0 Phosphorus Magnesium TSH Cortisol AM Sample 05/26/18 07:20 WBC RBC Hgb Hct MCV MCH MCHC RDW Plt Count MPV Absolute Neuts (auto) Neutrophils % Lymphocytes % Monocytes % Eosinophils % Basophils % Sodium 124 L* Potassium 4.4 Chloride 87 L Carbon Dioxide 29 H Anion Gap 8 BUN 15 Creatinine 0.5 L Creat Clearance w eGFR > 60 Random Glucose 122 H Serum Osmolality Calcium 8.8 Phosphorus 3.0 D Magnesium 1.9 TSH Cortisol AM Sample Active Medications Generic Name Dose Route Start Last Admin Trade Name Freq PRN Reason Stop Dose Admin Acetaminophen 650 mg 05/24/18 13:39 Tylenol - PO Q4H PRN PAIN OR FEVER Albuterol/Ipratropium 1 amp 05/25/18 21:27 Duoneb - NEB Q6H PRN SHORT OF BREATH/WHEEZING Artificial Tears 1 drop 05/24/18 10:00 05/26/18 09:27 Artificial Tears OU 1 drop BID HILARIA Administration Aspirin 81 mg 05/25/18 12:00 05/26/18 09:27 Asa - PO 81 mg DAILY HILARIA Administration Budesonide/Formoterol Fumarate 2 puff 05/24/18 22:00 05/26/18 09:27 Symbicort 80/4.5mcg - IH 2 puff BID HILARIA Administration Cholecalciferol 1,000 unit 05/24/18 10:00 05/26/18 09:27 Vitamin D3 - PO 1,000 unit DAILY HILARIA Administration Famotidine 20 mg 05/25/18 22:00 05/26/18 09:27 Pepcid - PO 20 mg BID HILARIA Administration Heparin Sodium (Porcine) 5,000 unit 05/24/18 06:00 05/26/18 05:56 Heparin - SQ 5,000 unit TID HILARIA Administration Metoprolol Succinate 50 mg 05/25/18 12:30 05/26/18 09:27 Toprol Xl - PO 50 mg BID HILARIA Administration Multivitamins/Minerals/Vitamin C 1 tab 05/24/18 10:00 05/26/18 09:27 Tab-A-Vit - PO 1 tab DAILY HILARIA Administration Ondansetron HCl 4 mg 05/26/18 06:35 05/26/18 07:00 Zofran Injection IVPUSH 4 mg Q6H PRN Administration NAUSEA AND/OR VOMITING Polyethylene Glycol 17 gm 05/26/18 10:00 Miralax (For Daily Use) - PO DAILY HILARIA Rosuvastatin Calcium 5 mg 05/25/18 22:00 05/25/18 21:08 Crestor - PO 5 mg Q2D@2200 HILARIA Administration Valsartan 160 mg 05/24/18 10:00 05/26/18 09:27 Diovan - PO 160 mg DAILY HILARIA Administration ASSESSMENT/PLAN:
[2018-05-26] MEDS: SODIUM CHLORIDE 1 GM TABLET PO SCH ×2 (12:43→12:58)
[2018-05-26] MEDS: POLYETHYLENE GLYCOL 3350 119 GM BTL PO SCH ×2 (12:44→12:58)
[2018-05-26] MEDS ORDERED: SODIUM CHLORIDE 1,000 ML IV SCH (12:45)
--- NOTE | 2018-05-26 14:08 | PN ---
Progress Note, Physician History of Present Illness: Pt seen and examined at bedside. She is awake and alert. She says she is considering hospice care. She denies shortness of breath. She has not eaten or drank much of anything since yesterday. She denies lower ext edema. Her family is at bedside and care was discussed with them. - Current Medication List Current Medications: Active Medications Acetaminophen (Tylenol -) 650 mg PO Q4H PRN PRN Reason: PAIN OR FEVER Albuterol/Ipratropium (Duoneb -) 1 amp NEB Q6H PRN PRN Reason: SHORT OF BREATH/WHEEZING Artificial Tears (Artificial Tears) 1 drop OU BID [facility] Last Admin: 05/26/18 09:27 Dose: 1 drop Aspirin (Asa -) 81 mg PO DAILY [facility] Last Admin: 05/26/18 09:27 Dose: 81 mg Budesonide/Formoterol Fumarate (Symbicort 80/4.5mcg -) 2 puff IH BID [facility] Last Admin: 05/26/18 09:27 Dose: 2 puff Cholecalciferol (Vitamin D3 -) 1,000 unit PO DAILY [facility] Last Admin: 05/26/18 09:27 Dose: 1,000 unit Famotidine (Pepcid -) 20 mg PO BID [facility] Last Admin: 05/26/18 09:27 Dose: 20 mg Heparin Sodium (Porcine) (Heparin -) 5,000 unit SQ TID [facility] Last Admin: 05/26/18 05:56 Dose: 5,000 unit Sodium Chloride (Normal Saline -) 1,000 mls @ 42 mls/hr IV ASDIR [facility] Stop: 05/27/18 12:34 Last Admin: 05/26/18 12:43 Dose: 42 mls/hr Metoprolol Succinate (Toprol Xl -) 50 mg PO BID [facility] Last Admin: 05/26/18 09:27 Dose: 50 mg Multivitamins/Minerals/Vitamin C (Tab-A-Vit -) 1 tab PO DAILY [facility] Last Admin: 05/26/18 09:27 Dose: 1 tab Ondansetron HCl (Zofran Injection) 4 mg IVPUSH Q6H PRN PRN Reason: NAUSEA AND/OR VOMITING Last Admin: 05/26/18 07:00 Dose: 4 mg Polyethylene Glycol (Miralax (For Daily Use) -) 17 gm PO DAILY [facility] Last Admin: 05/26/18 12:58 Dose: Not Given Rosuvastatin Calcium (Crestor -) 5 mg PO Q2D@2200 [facility] Last Admin: 05/25/18 21:08 Dose: 5 mg Sodium Chloride (Sodium Chloride Tablet -) 1 gm PO DAILY [facility] Last Admin: 05/26/18 12:58 Dose: Not Given Valsartan (Diovan -) 160 mg PO DAILY [facility] Last Admin: 05/26/18 09:27 Dose: 160 mg - Objective Vital Signs: Vital Signs Temperature 97.7 F 05/26/18 09:21 Pulse Rate 101 H 05/26/18 09:21 Respiratory Rate 18 05/26/18 09:21 Blood Pressure 149/84 05/26/18 09:21 O2 Sat by Pulse Oximetry (%) 95 05/26/18 08:52 Constitutional: Yes: Calm, Other (dry mucous membranes) Eyes: Yes: Conjunctiva Clear HENT: Yes: Atraumatic Neck: Yes: Supple Cardiovascular: Yes: S1, S2 Respiratory: Yes: Wheezes Gastrointestinal: Yes: Soft Genitourinary: Yes: WNL Musculoskeletal: Yes: WNL Edema: Yes Edema: LLE: Trace, RLE: Trace Integumentary: Yes: Venous Stasis Changes Neurological: Yes: Oriented Psychiatric: Yes: Oriented Labs: CBC, BMP 05/26/18 07:20 05/26/18 07:20 Problem List - Problems (1) Hyponatremia Code(s): E87.1 - HYPO-OSMOLALITY AND HYPONATREMIA Assessment/Plan Current Medications Generic Name Dose Route Start Last Admin Trade Name Freq PRN Reason Stop Dose Admin Acetaminophen 650 mg 05/24/18 13:39 Tylenol - PO Q4H PRN PAIN OR FEVER Albuterol/Ipratropium 1 amp 05/25/18 21:27 Duoneb - NEB Q6H PRN SHORT OF BREATH/WHEEZING Artificial Tears 1 drop 05/24/18 10:00 05/26/18 09:27 Artificial Tears OU 1 drop BID HILARIA Administration Aspirin 81 mg 05/25/18 12:00 05/26/18 09:27 Asa - PO 81 mg DAILY HILARIA Administration Budesonide/Formoterol Fumarate 2 puff 05/24/18 22:00 05/26/18 09:27 Symbicort 80/4.5mcg - IH 2 puff BID HILARIA Administration Cholecalciferol 1,000 unit 05/24/18 10:00 05/26/18 09:27 Vitamin D3 - PO 1,000 unit DAILY HILARIA Administration Famotidine 20 mg 05/25/18 22:00 05/26/18 09:27 Pepcid - PO 20 mg BID HILARIA Administration Heparin Sodium (Porcine) 5,000 unit 05/24/18 06:00 05/26/18 05:56 Heparin - SQ 5,000 unit TID HILARIA Administration Sodium Chloride 1,000 mls @ 42 mls/hr 05/26/18 12:45 05/26/18 12:43 Normal Saline - IV 05/27/18 12:34 42 mls/hr ASDIR HILARIA Administration Metoprolol Succinate 50 mg 05/25/18 12:30 05/26/18 09:27 Toprol Xl - PO 50 mg BID HILARIA Administration Multivitamins/Minerals/Vitamin C 1 tab 05/24/18 10:00 05/26/18 09:27 Tab-A-Vit - PO 1 tab DAILY HILARIA Administration Ondansetron HCl 4 mg 05/26/18 06:35 05/26/18 07:00 Zofran Injection IVPUSH 4 mg Q6H PRN Administration NAUSEA AND/OR VOMITING Polyethylene Glycol 17 gm 05/26/18 10:00 05/26/18 12:58 Miralax (For Daily Use) - PO Not Given DAILY [facility] Rosuvastatin Calcium 5 mg 05/25/18 22:00 05/25/18 21:08 Crestor - PO 5 mg Q2D@2200 HILARIA Administration Sodium Chloride 1 gm 05/26/18 12:30 05/26/18 12:58 Sodium Chloride Tablet - PO Not Given DAILY HILARIA Valsartan 160 mg 05/24/18 10:00 05/26/18 09:27 Diovan - PO 160 mg DAILY HILARIA Administration Impression 1. hyponatremia in the setting of a thiazide 2. scleroderma 3. HTN 4. HLD Plan - sodium is not improvd - pt appears hypovolemic, will restart saline. She is also not taking much food in. - echo reviewed, no gross failure - discussed plan and findings with pt and her family at length. They are considering palliative care at home and do not want any aggressive measures. They agree with fluids. - follow up repeat urine studies - cont to monitor sodium - discussed with medical team - pt refused salt tabs - start supplement such as ensure - do not recommend restarting a thiazide - encourage PO intake Dr Titus
[2018-05-26 16:03] VITALS: BMI 22.9
[2018-05-27] MEDS: HEPARIN NA (PORCINE) 5,000 UNITS/ML 1ML VIAL SQ SCH ×3 (06:05→21:13)
--- NOTE | 2018-05-27 07:43 | CON.CARD ---
Consult Consult Specialty:: cardio - History of Present Illness Chief Complaint: weakness History of Present Illness: 82 F presented with weakness. also noted chronic cough, orthopnea. recently with low bp as outpt, necessitating d/c of hctz by her pmd. then resumed hctz 3x/week due to interval leg swelling found to be hyponatremic here. renal consulted--treating with salt tabs, NS fluids, holding thiazide. 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 but both sx's worsened of late. cough is day and night. usually dry but often feels something in back of throat and sometimes coughs up mucous. no wheezing. gets out of breath just standing at bedside here and brushing her teeth. feels sob when climbs into bed, and also + orthopnea--sleeping in recliner of late. sometimes visibly sob when speaking per son no cp +leg swelling PMH: scleroderma HTN - Past Medical History Cardio/Vascular: Yes: HTN, Hyperlipdemia Musculoskeletal: Yes: Osteoarthritis Rheumatology: Yes: Other (scleroderma) Dermatology: Yes: Other (Scleroderma) - Past Surgical History Past Surgical History: Yes: Hysterectomy - Alcohol/Substance Use Hx Alcohol Use: No History of Substance Use: reports: None - Smoking History Smoking history: Never smoked Have you smoked in the past 12 months: No Aproximately how many cigarettes per day: 0 - Social History ADL: Family Assistance Occupation: Retired History of Recent Travel: No Home Medications - Allergies Allergies/Adverse Reactions: Allergies Allergy/AdvReac Type Severity Reaction Status Date / Time codeine [Codeine] Allergy Verified 09/02/12 16:47 ANESTESIA AdvReac Severe Uncoded 09/02/12 16:46 CODIENE AdvReac Intermediate Uncoded 09/02/12 16:46 - Home Medications Home Medications: Ambulatory Orders Metoprolol Succinate [Toprol XL -] 100 mg PO HS 09/02/12 Rosuvastatin Calcium [Crestor] 5 mg PO Q48H 09/02/12 Ca Cmb No.1/Vit D3/B-6/FA/B12 [Vitamin D3 1,000 Unit Tablet] 1 each PO DAILY tablet 09/06/13 Cholecalciferol (Vitamin D3) [Vitamin D3 -] 1,000 unit PO DAILY 08/16/14 Multivitamins [Multivit ([facility] Formul[facility])] 1 tab PO DAILY 08/16/14 Albuterol Sulfate Inhaler - [Ventolin Hfa Inhaler -] 1 puff IH QID PRN 05/23/18 Dextran/Hypromellose/Glycerin [Genteal Tears 0.1%-0.2%-0.3%] 1 drop OU BID 05/23 Gabapentin Enacarbil [Horizant] 300 mg PO DAILY 05/23/18 Valsartan [Diovan] 160 mg PO [id number] 05/23/18 Valsartan/Hydrochlorothiazide [Valsartan-Hctz 160-12.5 mg Tab] 1 each PO SUTUTH 05/23/18 Review of Systems - Review of Systems Constitutional: denies: Chills, Fever Eyes: denies: Eye Pain HENT: denies: Nasal Congestion Neck: denies: Stiffness Cardiovascular: denies: Palpitations Respiratory: reports: Orthopnea. denies: PND Gastrointestinal: denies: Diarrhea, Rectal Bleeding Genitourinary: denies: Burning, Hematuria Musculoskeletal: denies: Muscle Pain Integumentary: denies: Rash Neurological: denies: Numbness, Seizure, Syncope Endocrine: denies: Excessive Sweating Hematology/Lymphatic: denies: Excessive Bleeding Vital Signs: Vital Signs Temperature 97.9 F 05/27/18 06:00 Pulse Rate 99 H 05/27/18 06:00 Respiratory Rate 18 05/27/18 06:00 Blood Pressure 105/56 05/27/18 06:00 O2 Sat by Pulse Oximetry (%) 92 L 05/27/18 06:35 Constitutional: Yes: Well Nourished, No Distress Eyes: No: Sclera Icterus HENT: No: Nasal Congestion Neck: No: Decreased ROM Respiratory: Yes: CTA Bilaterally. No: Accessory Muscle Use, Rales, Wheezes Gastrointestinal: Yes: Normal Bowel Sounds. No: Distention, Hepatomegaly, Palpable Mass, Tenderness Cardiovascular: Yes: Regular Rate and Rhythm JVD: No Carotid Bruit: No PMI: Non-Displaced Heart Sounds: Yes: S1, S2. No: Gallop Murmur: Yes: Systolic Murmur (2/6 early TANIKA lusb, no S2 split heard). No: Diastolic Murmur Musculoskeletal: Yes: Other (No kyphosis) Extremities: No: Cold, Cyanosis Edema: Yes (1-2+ pretib) Peripheral Pulses: 2+ Left Carotid, 2+ Right Carotid, 2+ Left Doralis Pedis, 2+ Right Dorsalis Pedis Integumentary: No: Jaundice Neurological: Yes: Alert, Oriented (x3) Psychiatric: No: Agitated - Other Data Labs, Other Data: CBC, BMP 05/26/18 07:20 05/26/18 07:20 Laboratory Tests 05/23/18 05/23/18 05/23/18 16:40 16:40 23:00 WBC Hgb Plt Count Sodium Potassium Carbon Dioxide BUN Creatinine AST 28 D ALT 17 Troponin I < 0.03 B-Natriuretic Peptide 1390.64 H TSH Cortisol AM Sample 05/24/18 05/25/18 05/26/18 11:00 07:25 07:20 WBC 6.9 Hgb 13.2 Plt Count 232 Sodium Potassium Carbon Dioxide BUN Creatinine AST ALT Troponin I B-Natriuretic Peptide TSH 2.80 Cortisol AM Sample 14.6 05/26/18 07:20 WBC Hgb Plt Count Sodium 124 L* Potassium 4.4 Carbon Dioxide 29 H BUN 15 Creatinine 0.5 L AST ALT Troponin I B-Natriuretic Peptide TSH Cortisol AM Sample Assessment/Plan EKG: sinus tach, normal axis. no path q's. no ST-Ts CT chest: elevated R hemidiaphragm. bibasilar ATX and probable infiltrates. no effusion. dense calcification of coronaries. Echo 06/07: nl LV/EF. nl RV. nl LA. mild-mod /mild AI. mod TR. nl RVSP. tele: NSR chronic cough, scleroderma: -BNP 1300. no effusions/congestion on CT chest. phys exam not c/w CHF -no fibrosis/ILDz findings on CT scan. no hypoxia demonstrated here -? infiltrates vs ATX at bases on CT--per pulm -no stigmata of pulm HTN noted on echo, CT scan -cause of cough remains obscure--? post-nasal drip -no concern for PE given marked chronicity of both the sob and the cough -cough no likely ARB effect given mucous present at times and on this med for several yrs. also, this would not explain her sob. -cannot exclude hi metoprolol dose causing cough/sob (? bronchospasm component)- -try decr dose to 25 bid (takes 100mg qd at home) -however as of now there is no explanation for her sob. she is probably very deconditioned, and this explains her sob with activity but less likely to cause orthopnea and sob with speaking -the one etiology not yet excluded is scleroderma-associated pulmonary arterial HTN, for which pulm vasodilators might signif improve quality of life. would need RHC at tertiary center to make this dx, and tx guided by PH specialist -disc'd this with pt and son today. pt is tired of testing and has heretofore declined f/u with specialists or further testing. they will consider, and i advised that she call me if wants to arrange this as outpt (it is a purely elective workup). AV and TV dz: -mild-mod , moderate TR -doubt either is hemodyn significant or causing sx's (gradients and VITA both in moderate range, no JVD to suggest severe TR). -do not rec lasix (hi risk of decompensating her hyponatremia) HTN: -well controlled -cont current meds hyponatremia: -renal following: salt tabs, normal saline IVF -no thiazide. would defer loop diuretic as well (if pedal edema, best tx option here is stockings use) -TSH, am cortisol WNL. ? SIADH HPL: -cont rosuva D/C TELEMETRY
[2018-05-27] MEDS ORDERED: VALSARTAN 160 MG TABLET (UD) PO SCH (08:14)
--- NOTE | 2018-05-27 08:36 | PN ---
Progress Note (short form) - Note Progress Note: states she feels better today. appetite has improved. ate half a creamcheese sandwich last night and some saltines this AM which is significantly improved in the past 6 months. refusing to take salt tabs as she said made her mouth so dry and uncomfortable that she is refusing to take the medication. denies CP, SOB, fever, chills, N/V/C/D, numbness/tingling around the mouth. Current Medications Generic Name Dose Route Start Last Admin Trade Name Freq PRN Reason Stop Dose Admin Acetaminophen 650 mg 05/24/18 13:39 Tylenol - PO Q4H PRN PAIN OR FEVER Albuterol/Ipratropium 1 amp 05/25/18 21:27 Duoneb - NEB Q6H PRN SHORT OF BREATH/WHEEZING Artificial Tears 1 drop 05/24/18 10:00 05/26/18 21:30 Artificial Tears OU 1 drop BID HILARIA Administration Aspirin 81 mg 05/25/18 12:00 05/26/18 09:27 Asa - PO 81 mg DAILY HILARIA Administration Budesonide/Formoterol Fumarate 2 puff 05/24/18 22:00 05/26/18 21:30 Symbicort 80/4.5mcg - IH 2 puff BID HILARIA Administration Cholecalciferol 1,000 unit 05/24/18 10:00 05/26/18 09:27 Vitamin D3 - PO 1,000 unit DAILY HILARIA Administration Famotidine 20 mg 05/25/18 22:00 05/26/18 21:30 Pepcid - PO 20 mg BID HILARIA Administration Heparin Sodium (Porcine) 5,000 unit 05/24/18 06:00 05/27/18 06:05 Heparin - SQ 5,000 unit TID HILARIA Administration Sodium Chloride 1,000 mls @ 42 mls/hr 05/26/18 12:45 05/26/18 12:43 Normal Saline - IV 05/27/18 12:34 42 mls/hr ASDIR HILARIA Administration Metoprolol Succinate 25 mg 05/27/18 08:13 Toprol Xl - PO BID HILARIA Multivitamins/Minerals/Vitamin C 1 tab 05/24/18 10:00 05/26/18 09:27 Tab-A-Vit - PO 1 tab DAILY HILARIA Administration Ondansetron HCl 4 mg 05/26/18 06:35 05/26/18 07:00 Zofran Injection IVPUSH 4 mg Q6H PRN Administration NAUSEA AND/OR VOMITING Polyethylene Glycol 17 gm 05/26/18 10:00 05/26/18 12:58 Miralax (For Daily Use) - PO Not Given DAILY HILARIA Rosuvastatin Calcium 5 mg 05/25/18 22:00 05/25/18 21:08 Crestor - PO 5 mg Q2D@2200 HILARIA Administration Sodium Chloride 1 gm 05/26/18 12:30 05/26/18 12:58 Sodium Chloride Tablet - PO Not Given DAILY HILARIA Valsartan 160 mg 05/27/18 08:14 Diovan - PO DAILY HILARIA Last Vital Signs Temp Pulse Resp BP Pulse Ox 97.9 F 99 H 18 105/56 92 L 05/27/18 06:00 05/27/18 06:00 05/27/18 06:00 05/27/18 06:00 05/27/18 07:52 General NAD, frail elderly lady, prominent clavicles, bitemporal wasting HEENT moist oral mucosa CV S1 S2 RRR +murmur Lungs CTA B/L no wheezing/rales/rhonchi Abdomen soft NT/ND Extremities no pedal edema no skin tenting, skin thickening A/P 82yo F wtih PMH scleroderma, HTN and dyslipidemia presented to the ER with confusion and found to have severe hyponatremia 1. Hyponatremia-possible thiazide induced. yesterday looked hypovolemic. today appears to be more euvolemic. labs were not ordered for today and now ordered. will cont with low dose IVF at this time. encouraged pt to take salt tabs as prescribed by nephro but refusing at this time. encouraged po intake of salty foods. encouraged son to bring in some of her favorite items to eat and to add salt. nephro on board 2. malnourished- encourage po intake. on dysphagia diet due to difficulty swallowing due to scleroderma. encouraged ensure shakes. nutritional eval 3. HTN- controlled with diuretic held and metoprolol dose reduced. cardio recommending RHC however family does not want any invasive testing at this time. titrate down medications as needed 4. scleroderma- on valsartan, artificial tears 5. COPD- on symbicort 6.dyslipidemia- statin 7. DVT ppx- hep sq 8. DNR/DNI. family seeking home hospice with [facility]. SW aware and application sent yesterday. spoke with son in detail about plan. all questions answered. verbalized understanding and agreement with plan. agreeable to labs and medications no invasive testing Visit type - Emergency Visit Emergency Visit: Yes ED Registration Date: 05/25/18 Care time: The patient presented to the Emergency Department on the above date and was hospitalized for further evaluation of their emergent condition. - New Patient This patient is new to me today: Yes Date on this admission: 05/27/18 - Critical Care Critical Care patient: No - Discharge Referral Referred to [facility] Med P.C.: No
[2018-05-27] MEDS ORDERED: PT OWN MED DRAWER 7, Y5N ONE (09:26)
[2018-05-27 09:34] LABS: ANION GAP 7 (8-16); BLOOD UREA NITROGEN 18 mg/dl (7-18); CALCIUM 8.8 mg/dl (8.4-10.2); CHLORIDE 88 mmol/L (98-107); CO2 29 mmol/L (22-28); CREATININE 0.6 mg/dl (0.6-1.3); POTASSIUM 4.3 mmol/L (3.5-5.1); SODIUM 124 mmol/L (136-145)
[2018-05-27 09:41] LABS: GLUCOSE,RANDOM 95 mg/dl (74-106)
[2018-05-27] MEDS: MULTIVITAMINS (DAILY MVI) TABLET (FP) PO SCH (09:56)
[2018-05-27] MEDS: POLYETHYLENE GLYCOL 3350 119 GM BTL PO SCH (09:57)
[2018-05-27] MEDS: FAMOTIDINE 20 MG TABLET PO SCH ×2 (09:57→21:12)
[2018-05-27] MEDS: CHOLECALCIFEROL (VITAMIN D3) 1,000 UNIT TABLET (FP) PO SCH (09:58)
[2018-05-27] MEDS: BUDESONIDE/FORMETEROL FUMARATE 80/4.5 mcg INHALER IH SCH ×2 (09:58→21:13)
[2018-05-27] MEDS: ARTIFICIAL TEARS (POLYVINYL ALCOHOL 1.4%) OPTH DROPS OU SCH ×2 (09:58→21:13)
[2018-05-27] MEDS: SODIUM CHLORIDE 1 GM TABLET PO SCH (09:58)
[2018-05-27] MEDS: ASPIRIN 81 MG CHEWABLE TABLETS PO SCH (09:58)
[2018-05-27] MEDS ORDERED: ACETAMINOPHEN 325 MG TABLET (FP) PO PRN (12:48)
[2018-05-27] MEDS: ROSUVASTATIN CA 5 MG TABLET (FP) PO SCH (21:12)
[2018-05-28] MEDS: HEPARIN NA (PORCINE) 5,000 UNITS/ML 1ML VIAL SQ SCH ×3 (06:40→21:16)
--- NOTE | 2018-05-28 08:29 | PN ---
Physical Exam: SUBJECTIVE: Patient seen and examined,c/o abdominal bloating/gas,reports mild sob over night cough improved, denies cp, or palpitations. OBJECTIVE: Vital Signs Period Temp Pulse Resp BP Sys/Frank Pulse Ox Last 24 Hr 97.4 F-98.6 F 93-109 17-19 135-195/59-101 92-100 GENERAL: The patient is awake, alert, and fully oriented, in no acute distress. HEAD: Normal with no signs of trauma. EYES: PERRL, extraocular movements intact, sclera anicteric, conjunctiva clear. No ptosis. ENT: Ears normal, nares patent, oropharynx clear without exudates, moist mucous membranes. NECK: Trachea midline, full range of motion, supple. LUNGS: Breath sounds equal,diminished, no wheezes, no crackles, no accessory muscle use. HEART: Regular rate and rhythm, S1, S2,HM rub or gallop. ABDOMEN: Soft, non-tender, non-distended, normoactive bowel sounds, no guarding , no rebound, no hepatosplenomegaly, no masses. EXTREMITIES: 2+ pulses, warm, well-perfused,trace edema NEUROLOGICAL: Cranial nerves II through XII grossly intact. Normal speech, gait not observed. PSYCH: Normal mood, normal affect. SKIN: Warm, dry, normal turgor, no rashes or lesions noted Laboratory Results - last 24 hr 05/27/18 05/27/18 09:24 09:24 Sodium 124 L* Potassium 4.3 Chloride 88 L Carbon Dioxide 29 H Anion Gap 7 L BUN 18 Creatinine 0.6 Creat Clearance w eGFR > 60 Random Glucose 95 D Serum Osmolality 274 L Calcium 8.8 Active Medications Generic Name Dose Route Start Last Admin Trade Name Freq PRN Reason Stop Dose Admin Acetaminophen 650 mg 05/27/18 12:48 Tylenol - PO Q4H PRN FEVER Albuterol/Ipratropium 1 amp 05/25/18 21:27 Duoneb - NEB Q6H PRN SHORT OF BREATH/WHEEZING Artificial Tears 1 drop 05/24/18 10:00 05/27/18 21:13 Artificial Tears OU 1 drop BID HILARIA Administration Aspirin 81 mg 05/25/18 12:00 05/27/18 09:58 Asa - PO 81 mg DAILY HILARIA Administration Budesonide/Formoterol Fumarate 2 puff 05/24/18 22:00 05/27/18 21:13 Symbicort 80/4.5mcg - IH 2 puff BID HILARIA Administration Cholecalciferol 1,000 unit 05/24/18 10:00 05/27/18 09:58 Vitamin D3 - PO 1,000 unit DAILY HILARIA Administration Famotidine 20 mg 05/25/18 22:00 05/27/18 21:12 Pepcid - PO 20 mg BID HILARIA Administration Heparin Sodium (Porcine) 5,000 unit 05/24/18 06:00 05/28/18 06:40 Heparin - SQ 5,000 unit TID HILARIA Administration Metoprolol Succinate 25 mg 05/27/18 10:00 05/27/18 21:13 Toprol Xl - PO 25 mg BID HILARIA Administration Multivitamins/Minerals/Vitamin C 1 tab 05/24/18 10:00 05/27/18 09:56 Tab-A-Vit - PO 1 tab DAILY HILARIA Administration Ondansetron HCl 4 mg 05/26/18 06:35 05/26/18 07:00 Zofran Injection IVPUSH 4 mg Q6H PRN Administration NAUSEA AND/OR VOMITING Polyethylene Glycol 17 gm 05/26/18 10:00 05/27/18 09:57 Miralax (For Daily Use) - PO 17 gm DAILY HILARIA Administration Rosuvastatin Calcium 5 mg 05/25/18 22:00 05/27/18 21:12 Crestor - PO 5 mg Q2D@2200 HILARIA Administration Sodium Chloride 1 gm 05/26/18 12:30 05/27/18 09:58 Sodium Chloride Tablet - PO Not Given DAILY HILARIA Valsartan 160 mg 05/27/18 08:14 05/27/18 09:57 Diovan - PO 160 mg DAILY HILARIA Administration Microbiology 05/23/18 19:50 Urine - Urine Clean Catch Urine Culture - Final Chest xray portable Impression: Bilateral increased interstitial lung markings without gross evidence of focal airspace disease/ pneumonia. ASSESSMENT/PLAN: This is an82yo F [facility] scleroderma, HTN and Dyslipidemia presented to the ER with confusion and found to have severe Hyponatremia. *Hyponatremia-possible Thiazide induced vs ?SIADH -Na124 - serum osmo low - renal following- rec hydration -no salt tabs, no salt restriction - will f/u on Water Taxi Operator -TSH, cortisol WNL. *HTN-BP controlled - Diuretic on hold in view of Hyponatremia - will cont on Valsartan ( dose increased) and BB dose reduced (?bronchospasm) -cardio recommending RHC however family does not want any invasive testing at this time - will monitor BP closely and titrate meds as needed - Echo- Normal LVF. mod , moderate TR *Leg edema, ? CHF - no sob - BNP -1390 - Echo- Normal LVF. mod , moderate TR - CT chest- no effusions/congestion on CT chest - cardiology in put appreciated *Malnourished- on dysphagia diet due to difficulty swallowing due to scleroderma. -encouraged ensure shakes - nutritional eval - swallowing eval *Scleroderma- on artificial tears *COPD- stable - will cont on Symbicort and Neb tx *Dyslipidemia *DVT ppx- Hep sq *Code status :DNR/DNI. Dispo: Family seeking home hospice with [facility]. NANCY aware and application sent yesterday. Visit type - Emergency Visit Emergency Visit: Yes ED Registration Date: 05/25/18 Care time: The patient presented to the Emergency Department on the above date and was hospitalized for further evaluation of their emergent condition. - New Patient This patient is new to me today: Yes Date on this admission: 05/28/18 - Critical Care Critical Care patient: No
[2018-05-28] MEDS ORDERED: SIMETHICONE 80 MG TAB.CHEW (FP) PO PRN (09:15)
[2018-05-28] MEDS ORDERED: PT OWN MED DRAWER 7, Y5N ONE (09:35)
[2018-05-28 09:36] LABS: ANION GAP 11 (8-16); BLOOD UREA NITROGEN 16 mg/dl (7-18); CHLORIDE 91 mmol/L (98-107); CO2 25 mmol/L (22-28); CREATININE 0.5 mg/dl (0.6-1.3); GLUCOSE,RANDOM 74 mg/dl (74-106); POTASSIUM 4.4 mmol/L (3.5-5.1); SODIUM 127 mmol/L (136-145)
[2018-05-28] MEDS: ASPIRIN 81 MG CHEWABLE TABLETS PO SCH (10:08)
[2018-05-28] MEDS: MULTIVITAMINS (DAILY MVI) TABLET (FP) PO SCH (10:08)
[2018-05-28] MEDS: ARTIFICIAL TEARS (POLYVINYL ALCOHOL 1.4%) OPTH DROPS OU SCH ×2 (10:08→21:12)
[2018-05-28] MEDS: CHOLECALCIFEROL (VITAMIN D3) 1,000 UNIT TABLET (FP) PO SCH (10:09)
[2018-05-28] MEDS: FAMOTIDINE 20 MG TABLET PO SCH ×2 (10:09→21:15)
[2018-05-28] MEDS: VALSARTAN 160 MG TABLET (UD) PO SCH ×2 (10:09→21:16)
[2018-05-28] MEDS: SODIUM CHLORIDE 1 GM TABLET PO SCH (10:14)
[2018-05-28] MEDS: BUDESONIDE/FORMETEROL FUMARATE 80/4.5 mcg INHALER IH SCH ×2 (10:14→21:10)
[2018-05-28] MEDS: POLYETHYLENE GLYCOL 3350 119 GM BTL PO SCH (10:15)
[2018-05-28] MEDS: SODIUM CHLORIDE 1,000 ML IV SCH (11:00)
[2018-05-28] MEDS: hydrALAZINE HCL 25 MG TABLET (FP) PO SCH (20:00)
--- NOTE | 2018-05-28 20:25 | PN ---
Progress Note (short form) - Note Progress Note: Problems 1. hyponatremia in the setting of a thiazide 2. scleroderma 3. HTN 4. HLD Current Medications Acetaminophen (Tylenol -) 650 mg PO Q4H PRN PRN Reason: FEVER Albuterol/Ipratropium (Duoneb -) 1 amp NEB Q6H PRN PRN Reason: SHORT OF BREATH/WHEEZING Artificial Tears (Artificial Tears) 1 drop OU BID [facility] Last Admin: 05/28/18 10:08 Dose: 1 drop Aspirin (Asa -) 81 mg PO DAILY [facility] Last Admin: 05/28/18 10:08 Dose: 81 mg Budesonide/Formoterol Fumarate (Symbicort 80/4.5mcg -) 2 puff IH BID [facility] Last Admin: 05/28/18 10:14 Dose: 2 puff Cholecalciferol (Vitamin D3 -) 1,000 unit PO DAILY [facility] Last Admin: 05/28/18 10:09 Dose: 1,000 unit Famotidine (Pepcid -) 20 mg PO BID [facility] Last Admin: 05/28/18 10:09 Dose: 20 mg Heparin Sodium (Porcine) (Heparin -) 5,000 unit SQ TID [facility] Last Admin: 05/28/18 14:56 Dose: 5,000 unit Hydralazine HCl (Apresoline -) 25 mg PO BID [facility] Sodium Chloride (Normal Saline -) 1,000 mls @ 42 mls/hr IV ASDIR [facility] Last Admin: 05/28/18 11:00 Dose: 42 mls/hr Metoprolol Succinate (Toprol Xl -) 25 mg PO BID [facility] Last Admin: 05/28/18 10:14 Dose: 25 mg Multivitamins/Minerals/Vitamin C (Tab-A-Vit -) 1 tab PO DAILY [facility] Last Admin: 05/28/18 10:08 Dose: 1 tab Ondansetron HCl (Zofran Injection) 4 mg IVPUSH Q6H PRN PRN Reason: NAUSEA AND/OR VOMITING Last Admin: 05/26/18 07:00 Dose: 4 mg Polyethylene Glycol (Miralax (For Daily Use) -) 17 gm PO DAILY [facility] Last Admin: 05/28/18 10:15 Dose: 17 gm Rosuvastatin Calcium (Crestor -) 5 mg PO Q2D@2200 [facility] Last Admin: 05/27/18 21:12 Dose: 5 mg Simethicone (Mylicon -) 80 mg PO QID PRN PRN Reason: indigestion Sodium Chloride (Sodium Chloride Tablet -) 1 gm PO DAILY [facility] Last Admin: 05/28/18 10:14 Dose: Not Given Valsartan (Diovan -) 160 mg PO BID [facility] Last Admin: 05/28/18 10:09 Dose: 160 mg Last Vital Signs Temp Pulse Resp BP Pulse Ox 97.8 F 105 H 19 181/95 98 05/28/18 18:00 05/28/18 18:00 05/28/18 19:31 05/28/18 18:00 05/28/18 19:31 CBC, BMP 05/26/18 07:20 05/28/18 08:30 IMP- hyponatremia is less pronounced potential transfer to inpatient hospice Plan
[2018-05-29 06:20] VITALS: BP 170/80; PULSE 90; TEMP 98.1
[2018-05-29] MEDS: HEPARIN NA (PORCINE) 5,000 UNITS/ML 1ML VIAL SQ SCH (06:28)
[2018-05-29 09:19] LABS: ANION GAP 7 (8-16); BLOOD UREA NITROGEN 12 mg/dl (7-18); CALCIUM 8.7 mg/dl (8.4-10.2); CHLORIDE 91 mmol/L (98-107); CO2 29 mmol/L (22-28); CREATININE 0.5 mg/dl (0.6-1.3); GLUCOSE,RANDOM 87 mg/dl (74-106); POTASSIUM 4.5 mmol/L (3.5-5.1); SODIUM 127 mmol/L (136-145)
[2018-05-29] MEDS ORDERED: MAGNESIUM HYDROX 2400MG/30ML ORAL SUSPENSION 30 ML CUP PO PRN (09:53)
[2018-05-29] MEDS: hydrALAZINE HCL 25 MG TABLET (FP) PO SCH (10:00)
[2018-05-29] MEDS: VALSARTAN 160 MG TABLET (UD) PO SCH (10:00)
[2018-05-29] MEDS: CHOLECALCIFEROL (VITAMIN D3) 1,000 UNIT TABLET (FP) PO SCH (10:02)
[2018-05-29] MEDS: FAMOTIDINE 20 MG TABLET PO SCH (10:02)
[2018-05-29] MEDS: SODIUM CHLORIDE 1 GM TABLET PO SCH (10:03)
[2018-05-29] MEDS: MULTIVITAMINS (DAILY MVI) TABLET (FP) PO SCH (10:03)
[2018-05-29] MEDS: ASPIRIN 81 MG CHEWABLE TABLETS PO SCH (10:04)
[2018-05-29] MEDS: POLYETHYLENE GLYCOL 3350 119 GM BTL PO SCH (10:04)
[2018-05-29] MEDS: SODIUM CHLORIDE 1,000 ML IV SCH (10:04)
[2018-05-29] MEDS: ARTIFICIAL TEARS (POLYVINYL ALCOHOL 1.4%) OPTH DROPS OU SCH (10:05)
[2018-05-29] MEDS: BUDESONIDE/FORMETEROL FUMARATE 80/4.5 mcg INHALER IH SCH (10:05)
--- NOTE | 2018-05-29 10:19 | PN ---
Progress Note, Physician Chief Complaint: Cardiology for Gitig/Ginelli History of Present Illness: Patient is immobile planned for [facility], reports improvement in chronic cough, orthopnea and lower extremity edema after diuresis. - Current Medication List Current Medications: Active Medications Acetaminophen (Tylenol -) 650 mg PO Q4H PRN PRN Reason: FEVER Albuterol/Ipratropium (Duoneb -) 1 amp NEB Q6H PRN PRN Reason: SHORT OF BREATH/WHEEZING Artificial Tears (Artificial Tears) 1 drop OU BID [facility] Last Admin: 05/29/18 10:05 Dose: 1 drop Aspirin (Asa -) 81 mg PO DAILY [facility] Last Admin: 05/29/18 10:04 Dose: 81 mg Budesonide/Formoterol Fumarate (Symbicort 80/4.5mcg -) 2 puff IH BID [facility] Last Admin: 05/29/18 10:05 Dose: 2 puff Cholecalciferol (Vitamin D3 -) 1,000 unit PO DAILY [facility] Last Admin: 05/29/18 10:02 Dose: 1,000 unit Famotidine (Pepcid -) 20 mg PO BID [facility] Last Admin: 05/29/18 10:02 Dose: 20 mg Heparin Sodium (Porcine) (Heparin -) 5,000 unit SQ TID [facility] Last Admin: 05/29/18 06:28 Dose: 5,000 unit Hydralazine HCl (Apresoline -) 25 mg PO BID [facility] Last Admin: 05/29/18 10:00 Dose: 25 mg Sodium Chloride (Normal Saline -) 1,000 mls @ 42 mls/hr IV ASDIR [facility] Last Admin: 05/29/18 10:04 Dose: 42 mls/hr Magnesium Hydroxide (Milk Of Magnesia -) 30 ml PO PRN PRN PRN Reason: CONSTIPATION Metoprolol Succinate (Toprol Xl -) 25 mg PO BID [facility] Last Admin: 05/29/18 10:04 Dose: 25 mg Multivitamins/Minerals/Vitamin C (Tab-A-Vit -) 1 tab PO DAILY [facility] Last Admin: 05/29/18 10:03 Dose: 1 tab Ondansetron HCl (Zofran Injection) 4 mg IVPUSH Q6H PRN PRN Reason: NAUSEA AND/OR VOMITING Last Admin: 05/26/18 07:00 Dose: 4 mg Polyethylene Glycol (Miralax (For Daily Use) -) 17 gm PO DAILY [facility] Last Admin: 05/29/18 10:04 Dose: 17 gm Rosuvastatin Calcium (Crestor -) 5 mg PO Q2D@2200 [facility] Last Admin: 05/27/18 21:12 Dose: 5 mg Simethicone (Mylicon -) 80 mg PO QID PRN PRN Reason: indigestion Sodium Chloride (Sodium Chloride Tablet -) 1 gm PO DAILY [facility] Last Admin: 05/29/18 10:03 Dose: 1 gm Valsartan (Diovan -) 160 mg PO BID [facility] Last Admin: 05/29/18 10:00 Dose: 160 mg - Objective Vital Signs: Vital Signs Temperature 98.1 F 05/29/18 06:00 Pulse Rate 90 05/29/18 06:00 Respiratory Rate 18 05/29/18 06:00 Blood Pressure 170/80 05/29/18 06:00 O2 Sat by Pulse Oximetry (%) 100 05/29/18 08:22 Constitutional: Yes: No Distress, Calm, Thin Neck: Yes: Supple Cardiovascular: Yes: Regular Rate and Rhythm, Murmur (2/6 SM) Respiratory: Yes: Regular, Diminished, Rales Gastrointestinal: Yes: Normal Bowel Sounds, Soft Edema: No Labs: CBC, BMP 05/26/18 07:20 05/29/18 07:35 Problem List - Problems (1) Dyspnea Code(s): R06.00 - DYSPNEA, UNSPECIFIED Qualifiers: Dyspnea type: orthopnea Qualified Code(s): R06.01 - Orthopnea (2) Hyponatremia Code(s): E87.1 - HYPO-OSMOLALITY AND HYPONATREMIA (3) 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 Code(s): J84.89 - OTHER SPECIFIED INTERSTITIAL PULMONARY DISEASES; M31.8 - OTHER SPECIFIED NECROTIZING VASCULOPATHIES (4) HLD (hyperlipidemia) Code(s): E78.5 - HYPERLIPIDEMIA, UNSPECIFIED Qualifiers: Hyperlipidemia type: pure hypercholesterolemia Qualified Code(s): E78.00 - Pure hypercholesterolemia, unspecified; E78.0 - Pure hypercholesterolemia (5) HTN (hypertension) Code(s): I10 - ESSENTIAL (PRIMARY) HYPERTENSION Qualifiers: Hypertension type: essential hypertension Qualified Code(s): I10 - Essential (primary) hypertension (6) Scleroderma, circumscribed Code(s): L94.0 - LOCALIZED SCLERODERMA [MORPHEA] (7) Mild aortic valve stenosis Code(s): I35.0 - NONRHEUMATIC AORTIC (VALVE) STENOSIS Assessment/Plan EKG: sinus tach, normal axis. no path q's. no ST-Ts CT chest: elevated R hemidiaphragm. bibasilar ATX and probable infiltrates. no effusion. dense calcification of coronaries. Echo 06/07: nl LV/EF. nl RV. nl LA. mild-mod /mild AI. mod TR. nl RVSP. tele: NSR chronic cough, scleroderma: -BNP 1300. no effusions/congestion on CT chest. phys exam not c/w CHF -no fibrosis/ILDz findings on CT scan. no hypoxia demonstrated here -? infiltrates vs ATX at bases on CT--per pulm -no stigmata of pulm HTN noted on echo, CT scan -cause of cough remains obscure--? post-nasal drip -no concern for PE given marked chronicity of both the sob and the cough -cough no likely ARB effect given mucous present at times and on this med for several yrs. also, this would not explain her sob. -cannot exclude hi metoprolol dose causing cough/sob (? bronchospasm component)- -try decr dose to 25 bid (takes 100mg qd at home) -however as of now there is no explanation for her sob. she is probably very deconditioned, and this explains her sob with activity but less likely to cause orthopnea and sob with speaking -the one etiology not yet excluded is scleroderma-associated pulmonary arterial HTN, for which pulm vasodilators might signif improve quality of life. would need RHC at tertiary center to make this dx, and tx guided by PH specialist -disc'd this with pt and son today. pt is tired of testing and has heretofore declined f/u with specialists or further testing. they will consider, and i advised that she call me if wants to arrange this as outpt (it is a purely elective workup). AV and TV dz: -mild-mod , moderate TR -doubt either is hemodyn significant or causing sx's (gradients and VITA both in moderate range, no JVD to suggest severe TR). -do not rec lasix (hi risk of decompensating her hyponatremia) HTN: -well controlled -cont current meds hyponatremia: -renal following: salt tabs, normal saline IVF -no thiazide. would defer loop diuretic as well (if pedal edema, best tx option here is stockings use) -TSH, am cortisol WNL. ? SIADH HPL: -cont rosuva Dispo: -d/c planning to home hospice with [facility]
--- NOTE | 2018-05-29 11:45 | DS ---
Physical Exam: SUBJECTIVE: Patient seen and examined, resting comfortably in bedside recliner, denies any chest pain or shortness of breath, requesting discharge home with at [facility] home[facility] hospice, daughter at bedside. OBJECTIVE:This is an 82 year old female with a past medical history significant for scleroderma, pneumonia, HTN, HLD who presented to the ED with weakness today after going to the bathroom. Pt also reports chronic cough and orthopnea. Pt reports her valsartan HCTZ was changed to plain valsartan 4 weeks ago due to low BP but then her legs began to swell so her PCP restarted HCTZ 3 days per week 2 weeks ago. ER course was notable for: (1) Sodium 123 (2) CXR without acute findin Vital Signs Period Temp Pulse Resp BP Sys/Frank Pulse Ox Last 24 Hr 97.8 F-98.1 F 90-105 17-19 145-181/68-95 98-100 PHYSICAL EXAM GENERAL: The patient is awake, alert, and fully oriented, in no acute distress. HEAD: Normal with no signs of trauma. EYES: PERRL, extraocular movements intact, sclera anicteric, conjunctiva clear. No ptosis. ENT: Ears normal, nares patent, oropharynx clear without exudates, moist mucous membranes. NECK: Trachea midline, full range of motion, supple. LUNGS: Breath sounds equal,diminished, no wheezes, no crackles, no accessory muscle use. HEART: Regular rate and rhythm, S1, S2,HM rub or gallop. ABDOMEN: Soft, non-tender, non-distended, normoactive bowel sounds, no guarding , no rebound, no hepatosplenomegaly, no masses. EXTREMITIES: 2+ pulses, warm, well-perfused,trace edema NEUROLOGICAL: Cranial nerves II through XII grossly intact. Normal speech, gait not observed. PSYCH: Normal mood, normal affect. SKIN: Warm, dry, normal turgor, no rashes or lesions noted LABS Laboratory Results - last 24 hr 05/29/18 07:35 Sodium 127 L Potassium 4.5 Chloride 91 L Carbon Dioxide 29 H Anion Gap 7 L BUN 12 Creatinine 0.5 L Creat Clearance w eGFR > 60 Random Glucose 87 Calcium 8.7 Microbiology 05/23/18 19:50 Urine - Urine Clean Catch Urine Culture - Final HOSPITAL COURSE: Chest xray portable Impression: Bilateral increased interstitial lung markings without gross evidence of focal airspace disease/ pneumonia. ASSESSMENT/PLAN: Hyponatremia-possible Thiazide induced vs ?SIADH -serum sodium Na124 - serum osmo low - renal following- rec hydration -no salt tabs, no salt restriction - will f/u on Wool Carder -TSH, cortisol WNL. *HTN-BP controlled - Diuretic on hold in view of Hyponatremia - will cont on Valsartan ( dose increased) and BB dose reduced (?bronchospasm) -cardio recommending RHC however family does not want any invasive testing at this time - will monitor BP closely and titrate meds as needed - Echo- Normal LVF. mod , moderate TR *Leg edema, ? CHF - no sob - BNP -1390 - Echo- Normal LVF. mod , moderate TR - CT chest- no effusions/congestion on CT chest - cardiology in put appreciated *Malnourished- on dysphagia diet due to difficulty swallowing due to scleroderma. 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 Crush meds in applesauce for ease of swallowing. Encourage small sips of liquids as tolerated. continue all medications as prescribed please follow up with your primary care physician (Dr Ramirez) within 1 week if any new or persistent symptoms develop please return to the emergency department Referrals: Oskar Ramirez MD [Primary Care Provider] - Umberto Olivo MD [Staff Physician] - Disposition: VNS/HOME HEALTH CARE - Home Medications Comprehensive Discharge Medication List: Ambulatory Orders Metoprolol Succinate [Toprol XL -] 100 mg PO HS 09/02/12 Rosuvastatin Calcium [Crestor] 5 mg PO Q48H 09/02/12 Ca Cmb No.1/Vit D3/B-6/FA/B12 [Vitamin D3 1,000 Unit Tablet] 1 each PO DAILY tablet 09/06/13 Cholecalciferol (Vitamin D3) [Vitamin D3 -] 1,000 unit PO DAILY 08/16/14 Multivitamins [Multivit ([facility] Formulary)] 1 tab PO DAILY 08/16/14 Albuterol Sulfate Inhaler - [Ventolin Hfa Inhaler -] 1 puff IH QID PRN 05/23/18 Dextran/Hypromellose/Glycerin [Genteal Tears 0.1%-0.2%-0.3%] 1 drop OU BID 05/23 Gabapentin Enacarbil [Horizant] 300 mg PO DAILY 05/23/18 Valsartan [Diovan] 160 mg PO MOWEFRSA 05/23/18 Valsartan/Hydrochlorothiazide [Valsartan-Hctz 160-12.5 mg Tab] 1 each PO SUTUTH 05/23/18 - Discharge Referral Referred to [facility] Med P.C[facility] No
== END 2018-05-29 12:00 | disposition hospice, home (50) | DRG 641 ==
LOC: FER 16:20 → FM/S 20:13 → OBSVTOIN 05-25 13:39
PROVIDERS: ADMIT Internal Medicine; ATTEND Nurse Practitioner Family
DX: E87.1 Hypo-osmolality and hyponatremia (principal); J84.9 Interstitial pulmonary disease, unspecified; E46 Unspecified protein-calorie malnutrition; M34.9 Systemic sclerosis, unspecified; E78.5 Hyperlipidemia, unspecified; D64.9 Anemia, unspecified; M81.0 Age-related osteoporosis without current pathological fracture; I27.20 Pulmonary hypertension, unspecified; E86.1 Hypovolemia; I50.9 Heart failure, unspecified; I35.0 Nonrheumatic aortic (valve) stenosis; R00.0 Tachycardia, unspecified; J44.9 Chronic obstructive pulmonary disease, unspecified; Z66 Do not resuscitate; I11.0 Hypertensive heart disease with heart failure; I34.0 Nonrheumatic mitral (valve) insufficiency; T50.2X5A Adverse effect of carbonic-anhydrase inhibitors, benzothiadiazides and other diuretics, initial encounter; Z80.9 Family history of malignant neoplasm, unspecified; Z83.3 Family history of diabetes mellitus
CPT/HCPCS: 36415; 71045-TC-FY; 71250-TC; 80048; 80053; 81003; 81015; 82436; 82533; 82550; 82570; 83735; 83880; 83930; 83935; 84100; 84300; 84439; 84443; 84484; 85025; 87086; 93005; 93306-TC; 94640; 97116-GP; 97161-GP; 99283-25; G0378; J1644; J7030; J7620